=== PATIENT | female | born 1970 | race Caucasian/White ===

== ENCOUNTER → 2019-03-11 10:43 | Outpatient (CLI) | payer OTHER, SELFPAY ==
--- NOTE | 2019-03-11 10:50 | XR_ITS ---
PROCEDURE: XR LUMBAR SPINE 2-3V CLINICAL INDICATION: back pain Low back pain COMPARISON: No exams were available for comparison FINDINGS: Surgical clips are in the right mid and lower abdomen and in the pelvic region. There is normal alignment. No fracture or dislocation. No lytic or blastic change. There is partial lumbarization of S1. There is mild degenerative disc disease at L5-S1. there is generalized vascular calcification IMPRESSION: Mild degenerative disc disease L5-S1 Dictated by: Matt Núñez MD 03/11/2019 12:27 Electronically signed by Matt Núñez MD in [place] 03/11/2019 12:27
--- NOTE | 2019-03-11 10:50 | XR_ITS ---
PROCEDURE: XR SACRUM COCCYX MIN 2V CLINICAL INDICATION: coccyx pain COMPARISON: No exams were available for comparison FINDINGS: There are mild osteoarthritic changes of the right SI joint inferiorly. No fracture or dislocation. No fusion or sclerosis. Surgical clips are present in the pelvic region and there is a tubal ligation clip on the left IMPRESSION: Mild degenerative changes of the right SI joint otherwise negative Dictated by: Matt Núñez MD 03/11/2019 12:25 Electronically signed by Matt Núñez MD in [place] 03/11/2019 12:25
== END ==
PROVIDERS: PCP Emergency Medicine; Visit Provider Emergency Medicine
DX: M54.9 Dorsalgia, unspecified (principal); M53.3 Sacrococcygeal disorders, not elsewhere classified
CPT/HCPCS: 72100; 72220

== ENCOUNTER → 2019-03-30 12:01 | Outpatient (POV) | payer OTHER, SELFPAY | PROVIDERS: Visit Provider Specialist | DX: M79.642 Pain in left hand (principal); M79.641 Pain in right hand; R20.0 Anesthesia of skin; R20.2 Paresthesia of skin | CPT/HCPCS: 95886; 95910 ==

== ENCOUNTER → 2019-05-01 17:08 | Outpatient (CLI) | payer MEDICAID, SELFPAY ==
[2019-05-01 19:25] LABS: Amphetamine/Metha Screen,Urine Negative ng/mL (<1000); Barbiturates Screen,Urine Negative ng/mL (<200); Benzodiazepines Screen,Urine Negative ng/mL (<200); Cannabinoid Screen,Urine Negative ng/mL (<50); Cocaine Screen,Urine Negative ng/mL (<300); Methadone Screen,Urine Negative ng/mL (<300); Opiate Screen,Urine Positive ng/mL (<300); Phencyclidine Screen,Urine Negative ng/mL (<25)
== END ==
PROVIDERS: Visit Provider Emergency Medicine
DX: Z79.899 Other long term (current) drug therapy (principal)
CPT/HCPCS: 80305

== ENCOUNTER → 2019-05-25 10:17 | Outpatient (CLI) | payer MEDICAID, SELFPAY ==
--- NOTE | 2019-05-25 10:25 | MR_ITS ---
PROCEDURE: MR LUMBAR SPINE WO CON CLINICAL INDICATION: back pain Low back pain worse on the right with intermittent bilateral leg pain numbness and tingling COMPARISON: XR LUMBAR SPINE 2-3V from 03/11/2019 TECHNIQUE: Standard multiplanar multiecho sequences are performed without contrast. 3-D MIP and myelographic images are also rendered and reviewed FINDINGS: There are 6 non rib-bearing lumbar segments. The spinal cord ends at the L1 level. There is normal alignment L3-L4: Mild bulging disc. L4-5: Mild facet ligamentum hypertrophic change. L5-L6 colon mild degenerative disc disease with bulging disc and minimal central disc protrusion with facet ligamentum hypertrophy. L6-S1: Unremarkable. No disc herniation or canal stenosis. IMPRESSION: 1. No disc herniation or canal stenosis. 2. Minimal bulging disc at L3-L4. 3. Degenerative disc disease with minimal bulging disc and small central disc protrusion with facet ligamentum hypertrophy at L5-L6. 4. There are 6 lumbar segments. This should be taken into consideration if there is any surgical intervention contemplated. Dictated by: Matt Núñez MD 05/26/2019 11:42 Electronically signed by Matt Núñez MD in [place] 05/26/2019 11:42
== END ==
PROVIDERS: PCP Emergency Medicine; Visit Provider Emergency Medicine
DX: M54.5 Low back pain (principal)
CPT/HCPCS: 72148; 76376

== ENCOUNTER 2020-09-29 21:42 | Emergency (ER) | payer MEDICAID, SELFPAY ==
[2020-09-29 21:44] VITALS: BP 169/78; PULSE 60; RESP 16; TEMP 36.8; O2SAT 100; BMI 25.8
--- NOTE | 2020-09-29 22:01 | XR_ITS ---
PROCEDURE INFORMATION: Exam: XR Chest Exam date and time: 09/29/2020 10:01 PM Age: 49 years old Clinical indication: Patient HX: Cough, feeling ill for 3 days, smoker. TECHNIQUE: Imaging protocol: XR of the chest. Views: 2 views. COMPARISON: No relevant prior studies available. FINDINGS: Lungs: Unremarkable. No consolidation. Pleural spaces: Unremarkable. No pleural effusion. No pneumothorax. Heart/Mediastinum: Unremarkable. No cardiomegaly. Bones/joints: Unremarkable. IMPRESSION: No acute findings.
--- NOTE | 2020-09-29 22:01 | XR_ITS ---
PROCEDURE INFORMATION: Exam: XR Left Knee Exam date and time: 09/29/2020 10:01 PM Age: 49 years old Clinical indication: Patient HX: Left knee pain for a month. TECHNIQUE: Imaging protocol: XR Left knee. Views: 3 views. COMPARISON: No relevant prior studies available. FINDINGS: Bones/joints: Normal. Soft tissues: Normal. IMPRESSION: No acute findings.
[2020-09-29 22:11] LABS: Coronavirus 19, PCR Not Detected (NotDetected); Influenza A, PCR Not Detected (NotDetected); Influenza B, PCR Not Detected (NotDetected)
[2020-09-29 22:14] LABS: Basophils # 0.1 K/mm3 (0-0.2); Basophils % 0.7 % (0.1-2.0); Eosinophils # 0.1 K/mm3 (0.0-0.4); Eosinophils % 0.7 % (0.1-12.0); Hematocrit 42.8 % (37.0-47.0); Hemoglobin 13.9 g/dL (12.2-16.2); Lymphocytes # 2.5 K/mm3 (0.7-4.5); Mean Corpuscular HGB Conc 32.4 g/dL (31.8-35.4); Mean Corpuscular Hemoglobin 28.5 pg (27.0-31.2); Mean Corpuscular Volume 87.7 fl (81-99); Mean Platelet Volume 7.2 fl (7.4-10.4); Monocytes # 0.4 K/mm3 (0.1-1.0); Monocytes % 4.3 % (1.7-9.3); Neutrophils # 6.6 K/mm3 (1.8-7.8); Neutrophils % 68.3 % (37.0-80.0); Platelet Count 352 K/mm3 (142-424); Red Blood Count 4.88 M/mm3 (4.20-5.40); Red Cell Distribution Width 13.7 % (11.5-17.5); White Blood Count 9.7 K/mm3 (4.8-10.8)
[2020-09-29 22:15] LABS: Microscopic, Urine URINE MICROSCOPIC (MICROSCOPIC)
[2020-09-29 22:18] LABS: Appearance,Urine CLEAR (Clear); Bilirubin,Urine Negative (Negative); Blood, Urine 1+ (Negative); Color,Urine YELLOW (Yellow); Glucose,Urine (UA) Negative (Negative); Ketones,Urine Negative (Negative); Leukocyte Esterase,Urine Negative (Negative); Nitrate,Urine Negative (Negative); Protein,Urine 2+ (Negative); Specific Gravity, Urine 1.015 (1.005-1.030); Urobilinogen,Urine 0.2 EU/dl (0.2)
--- NOTE | 2020-09-29 22:20 | CT_ITS ---
PROCEDURE INFORMATION: Exam: CT Abdomen And Pelvis Without Contrast Exam date and time: 09/29/2020 10:20 PM Age: 49 years old Clinical indication: Abdominal pain; Prior surgery; Surgery date: 6+ months; Surgery type: Right kidney removal; Patient HX: Lower abd pain. N/v/d x3 days. PT had right kidney cancer, right kidney has been removed. Unable to have contrast TECHNIQUE: Imaging protocol: Computed tomography of the abdomen and pelvis without contrast. Radiation optimization: All CT scans at this facility use at least one of these dose optimization techniques: automated exposure control; mA and/or kV adjustment per patient size (includes targeted exams where dose is matched to clinical indication); or iterative reconstruction. COMPARISON: DX XR SACRUM COCCYX MIN 2V 03/11/2019 10:55 AM FINDINGS: Liver: Normal. No mass. Gallbladder and bile ducts: Normal. No calcified stones. No ductal dilation. Pancreas: Normal. No ductal dilation. Spleen: Normal. No splenomegaly. Adrenal glands: Normal. No mass. Kidneys and ureters: Right kidney is absent. Left kidney normal. Stomach and bowel: Unremarkable. No obstruction. No mucosal thickening. Appendix: Appendix not seen but no secondary signs of appendicitis. Intraperitoneal space: Unremarkable. No free air. No significant fluid collection. Vasculature: Unremarkable. No abdominal aortic aneurysm. Lymph nodes: Unremarkable. No enlarged lymph nodes. Urinary bladder: Unremarkable as visualized. Reproductive: Hysterectomy. Bones/joints: Unremarkable. No acute fracture. Soft tissues: Unremarkable. IMPRESSION: No acute findings in the abdomen pelvis
[2020-09-29 22:21] LABS: Alanine Aminotransferase 14 U/L (12-78); Albumin Level 4.2 g/dl (3.5-5.0); Albumin/Globulin Ratio 1.4 (1.1-1.8); Alkaline Phosphatase 118 U/L (38-126); Aspartate Amino Transferase 20 U/L (14-36); Bilirubin,Total 0.4 mg/dl (0.2-1.3); Blood Urea Nitrogen 9 mg/dl (7-17); Calcium 9.1 mg/dl (8.4-10.2); Carbon Dioxide 30 mmol/L (22.0-30.0); Creatinine Clearance Estimated 98 mL/min (50-200); Estimated Glomerular Filt Rate 76 ml/min (>60); GFR (African American) 92 ML/MIN (>60); Globulin 2.9 g/dL (1.3-3.2); Glucose 97 mg/dl (74-100); Lipase 42 U/L (23-300); Sodium 138 mmol/L (136-145); Total Protein,Serum 7.1 g/dl (6.3-8.2)
--- NOTE | 2020-09-29 22:21 | PC.NURSE ---
Pt refused contrast ct d/t only having one kidney
[2020-09-29 22:27] LABS: C-Reactive Protein 1.5 mg/L (0-4)
[2020-09-29 22:46] LABS: Procalcitonin < 0.030 ng/mL (0.0-2.0)
[2020-09-29 22:52] LABS: Chloride 103 mmol/L (98-107); Erythrocyte Sedimentation Rate 21 mm/hr (0-30)
--- NOTE | 2020-09-29 23:00 | HMH.EDNVD ---
ED Disposition Clinical Impression: Bronchitis Knee pain, left Qualifiers: Chronicity: acute Qualified Code(s): M25.562 - Pain in left knee Disposition: Home, Self-Care Condition on Discharge: Good Instructions: DI for Acute Bronchitis Additional Instructions: see pcp for follow up Prescriptions: levoFLOXacin [Levaquin 500mg tab] 500 mg PO DAILY #7 tab Transmission Status: Pending to [facility] predniSONE [Prednisone 20mg Tab] 20 mg PO BID #10 tab Transmission Status: Pending to [facility] Benzonatate [Tessalon Perle 100mg Cap] 100 mg PO TID #30 cap Transmission [facility]: [facility] Referrals: Philippe Myers MD [Primary Care Provider] - - Critical Care Critical Care Time: No Attestation: On 09/29/20, the high probability of a clinically significant, sudden or life threatening deterioration of the following system(s) required my full and direct attention, intervention and personal management. The time I documented below is in addition to time spent performing reported procedures but includes the following listed in this critical care notation. Medical Decision Making - Medical Records Medical records reviewed: Yes: I reviewed the patient's medical records. - Rajiv Inquiry Pt receiving controlled substance: No Vital Signs: 09/29/20 21:44 Temperature 98.2 F Temperature Source Oral Pulse Rate [Left Radial] 60 Respiratory Rate 16 Blood Pressure [Right Arm] 169/78 H Blood Pressure Mean [Right Arm] 108 Blood Pressure Source [Right Arm] Automatic Cuff Blood Pressure Position [Right Arm] Supine 02 Sat by Pulse Oximetry 100 Oxygen Delivery Method Room Air - Lab Data Lab results reviewed: Yes: I reviewed the patient's lab results. Lab Results 09/29/20 22:04: WBC 9.7, RBC 4.88, Hgb 13.9, Hct 42.8, MCV 87.7, MCH 28.5, MCHC 32.4, RDW 13.7, Plt Count 352, MPV 7.2 L, Neut % (Auto) 68.3, Lymph % (Auto) 26.0, [place] % (Auto) 4.3, Eos % (Auto) 0.7, Baso % (Auto) 0.7, Neut # (Auto) 6.6, Lymph # (Auto) 2.5, [place] # (Auto) 0.4, Eos # (Auto) 0.1, Baso # (Auto) 0.1, ESR 21 09/29/20 22:04: Sodium 138, Potassium 3.0 L, Chloride 103, Carbon Dioxide 30, Anion Gap 8.0, BUN 9, Creatinine 0.80, Estimated Creat Clear 98, Estimated GFR 76, Est GFR ( Amer) 92, Glucose 97, Calcium 9.1, Total Bilirubin 0.4, AST 20, ALT 14, Alkaline Phosphatase 118, C-Reactive Protein 1.5, Total Protein 7.1, Albumin 4.2, Globulin 2.9, Albumin/Globulin Ratio 1.4, Procalcitonin < 0.030 09/29/20 22:04: Lipase 42 09/29/20 22:07: SARS-CoV-2 (PCR) Not detected, Influenza A Untype (PCR) Not detected, Influenza Type B (PCR) Not detected 09/29/20 22:11: Urine Color Yellow, Urine Appearance Clear, Urine pH 6.0, Ur Specific [place] 1.015, Urine Protein 2+, Urine Glucose (UA) Negative, Urine Ketones Negative, Urine Blood 1+, Urine Nitrate Negative, Urine Bilirubin Negative, Urine Urobilinogen 0.2, Ur Leukocyte Esterase Negative, Urine RBC 3-5, Urine WBC None, Ur Squamous Epith Cells None, Urine Bacteria None Result diagrams: 09/29/20 22:04 09/29/20 22:04 Orders (Tests/Meds): ED MEDICATIONS Generic Name Dose Route Start Last Admin Trade Name Freq PRN Reason Stop Dose Admin Sodium Chloride 1,000 mls @ 999 mls/hr 09/29/20 22:15 09/29/20 22:15 Sod Chlor 0.9% 1000ml Bag IV 09/29/20 23:15 999 mls/hr .Q1H1M BARRY Administration Sodium Chloride 1,000 mls @ 999 mls/hr 09/29/20 23:15 09/29/20 23:07 Sod Chlor 0.9% 1000ml Bag IV 09/30/20 00:15 999 mls/hr .Q1H1M BARRY Administration Ceftriaxone Sodium 1 gm/ 50 mls @ 100 mls/hr 09/29/20 23:45 09/29/20 23:37 Sodium Chloride IV 10/13/20 23:44 100 mls/hr Q24H BARRY Administration Protocol Sodium Chloride 8 ml 09/29/20 22:09 Sodium Chloride 0.9% 10ml Vial IV 10/29/20 22:08 NEEDED PRN dilute pepcid Discontinued Medications Generic Name Dose Route Start Last Admin Trade Name Freq PRN Reason Stop Dose Admin
[2020-09-29 23:43] VITALS: BP 98/67; PULSE 68; O2SAT 100
[2020-09-30] VITALS: BP 121/68; PULSE 61; O2SAT 99
[2020-09-30 00:06] VITALS: BP 121/68; PULSE 62; RESP 18; TEMP 36.7; O2SAT 99
== END 2020-09-30 00:13 | disposition home or self-care (01) ==
PROVIDERS: Emergency Provider Emergency Medicine; PCP Emergency Medicine
DX: J20.9 Acute bronchitis, unspecified (principal); M25.562 Pain in left knee; F17.210 Nicotine dependence, cigarettes, uncomplicated
CPT/HCPCS: 71046; 73562; 74176; 80053; 81001; 83690; 84145; 85025; 85651; 86140; 96365; 96366; 96375; 99283; J2405; U0003

== ENCOUNTER → 2021-11-15 08:10 | Outpatient (CLI) | payer MEDICAID, SELFPAY ==
--- NOTE | 2021-11-15 08:12 | XR_ITS ---
FINAL REPORT CLINICAL HISTORY: L Knee pain COMPARISON: 09/29/2020 FINDINGS: LEFT KNEE 3 views of the left knee were obtained. There is no acute fracture or dislocation. There is mild lateral subluxation of the patella. There is a moderate joint effusion. IMPRESSION: Moderate joint effusion with mild lateral subluxation of the patella. Reviewed, Interpreted and Dictated by Bill Lee III, MD Transcribed by Chyna Peraza Authenticated and . [facility]
== END ==
PROVIDERS: PCP Emergency Medicine; Visit Provider Nurse Practitioner Family
DX: M25.562 Pain in left knee (principal)
CPT/HCPCS: 73564

== ENCOUNTER 2022-03-26 08:41 | Inpatient (IN) | payer MEDICAID, SELFPAY ==
[2022-03-26] VITALS (19 sets, daily range): BP systolic 108–180; BP diastolic 50–97; PULSE 50–76; RESP 12–18; TEMP 36.7–36.8; O2SAT 96–100; BMI 26.6; BMI 29.3
--- NOTE | 2022-03-26 08:41 | ECG_ITS ---
APPROVED REPORT Exam: Resting ECG HR:59 bpm ECG Measurements Heart Rate 59 AXES MN 204 P 38 QRSd 99 QRS 38 QT 440 T 66 QTc 440 Conclusion SINUS BRADYCARDIA INCOMPLETE RIGHT BUNDLE BRANCH BLOCK [90+ ms QRS DURATION, TERMINAL R IN V1/V2, 40+ ms S IN I/aVL/V4/V5/V6] BORDERLINE ECG UNCONFIRMED REPORT Electronically signed by : Josh Castillo MD 03/26/2022 19:55:45
--- NOTE | 2022-03-26 08:49 | XR_ITS ---
FINAL REPORT TECHNIQUE: Single view chest CLINICAL HISTORY: Midsternal chest pain COMPARISON: 09/30/2020 FINDINGS: A single view of the chest was obtained. The heart and mediastinum are within normal limits. The lungs are clear. There is no pneumothorax. Osseous structures are unremarkable. IMPRESSION: No acute cardiopulmonary process. Reviewed, Interpreted and Dictated by Bill Lee III, MD Transcribed by Jaimie Leon Authenticated and [facility]
[2022-03-26 09:06] LABS: Chloride 101 mmol/L (98-107); Potassium 4.1 mmoL/L (3.5-5.1); Sodium 139 mmol/L (136-145)
[2022-03-26 09:08] LABS: Basophils # 0.1 K/mm3 (0-0.2); Basophils % 1.6 % (0.1-2.0); Eosinophils # 0.1 K/mm3 (0.0-0.4); Eosinophils % 2.1 % (0.1-12.0); Hematocrit 44.6 % (37.0-47.0); Hemoglobin 14.1 g/dL (12.2-16.2); Lymphocytes # 1.7 K/mm3 (0.7-4.5); Lymphocytes % 25.6 % (10-50); Mean Corpuscular HGB Conc 31.7 g/dL (31.8-35.4); Mean Corpuscular Hemoglobin 29.3 pg (27.0-31.2); Mean Corpuscular Volume 92.2 fl (81-99); Mean Platelet Volume 7.9 fl (7.4-10.4); Monocytes # 0.3 K/mm3 (0.1-1.0); Monocytes % 4.7 % (1.7-9.3); Neutrophils # 4.3 K/mm3 (1.8-7.8); Neutrophils % 65.9 % (37.0-80.0); Platelet Count 292 K/mm3 (142-424); Red Blood Count 4.83 M/mm3 (4.20-5.40); Red Cell Distribution Width 13.2 % (11.5-17.5); White Blood Count 6.5 K/mm3 (4.8-10.8)
[2022-03-26 09:09] LABS: Anion Gap 10.1 mEq/L (5-15); Blood Urea Nitrogen 12 mg/dl (7-17); Carbon Dioxide 32 mmol/L (22.0-30.0); Creatinine Clearance Estimated 88 mL/min (50-200); Estimated Glomerular Filt Rate 65 ml/min (>60); GFR (African American) 79 ML/MIN (>60)
[2022-03-26 09:10] LABS: Calcium 9.4 mg/dl (8.4-10.2); Glucose 136 mg/dl (74-100)
--- NOTE | 2022-03-26 09:16 | HMH.EDGENADL ---
Discharge Plan Disposition Patient Disposition: Admitted As Inpatient Chief Complaint: Chest Pain Prescriptions Prescriptions: No Action polyethylene glycol 3350 [Miralax] 17 gram/dose powder 17 g PO DAILY Qty: 238 2RF budesonide-formoterol [Symbicort] 160-4.5 mcg/actuation HFA aerosol inhaler See Rx Instructions .ROUTE .COMPLEX Qty: 10.2 2RF Dose Instruction: 2 PUFFS TWICE DAILY Rx Instructions: 2 PUFFS TWICE DAILY ipratropium-albuterol 0.5 mg-3 mg(2.5 mg base)/3 mL solution for nebulization See Rx Instructions .ROUTE .COMPLEX Qty: 360 0RF Dose Instruction: INHALE CONTENTS OF 1 VIAL IN NEBULIZER MACHINE FOUR TIMES DAILY NEEDED FOR SHORTNESS OF BREATH OR WHEEZING Rx Instructions: INHALE CONTENTS OF 1 VIAL IN NEBULIZER MACHINE FOUR TIMES DAILY NEEDED FOR SHORTNESS OF BREATH OR WHEEZING albuterol sulfate [Ventolin HFA] 90 mcg/actuation HFA aerosol inhaler See Rx Instructions .ROUTE .COMPLEX Qty: 18 0RF Dose Instruction: INHALE 2 PUFFS BY MOUTH EVERY 4 TO 6 HOURS NEEDED FOR SHORTNESS OF BREATH OR WHEEZING Rx Instructions: INHALE 2 PUFFS BY MOUTH EVERY 4 TO 6 HOURS NEEDED FOR SHORTNESS OF BREATH OR WHEEZING bisacodyl 5 mg tablet,delayed release (DR/EC) 5 mg PO HS 2 Days Qty: 2 1RF magnesium citrate Solution 300 ml PO DAILY PRN (Reason: constipation) Qty: 296 1RF betamethasone dipropionate 0.05 % ointment 1 applic TOPICAL BID PRN (Reason: skin irritation) Qty: 45 0RF Linzess 145 mcg capsule 145 mcg PO DAILY Qty: 30 2RF methadone 10 mg Tablet 90 mg PO DAILY Referrals Follow up/Referrals: Provider,Referral, MD [Referring] - See instructions Clinical Impressions Clinical Impression: Non-ST elevation IA (NSTEMI), Chest pain Discharge ED Provider: Jose Farias General Adult HPI General Chief complaint: Chest Pain Stated complaint: CP Time Seen by Provider: 03/26/22 09:00 Mode of Arrival: Ambulatory Source of Information: Patient Limitations: No Limitations Description of Symptoms (Recalled from ER Triage Doc. by RN): Pt reports chest pain that began yesterday, states pain is intermittent in nature. Pt describes pain as a tightness in nature. Pt reports does have radiation of pain to LUE when has chest pain, reports pain in LUE is aching in nature. History of Present Illness HPI narrative: Patient is a 51-year-old female with no pertinent past medical history who presents with concern for chest pain. She states that her symptoms started yesterday. She says that she has never had this happen in the past. She says that it is intermittent but persistent since yesterday. She says that it is worse if she gets up and moves around but it has happened at rest. She says when it happens at rest that it is not as bad as when she is up and moving around. She describes it as a tightness. She denies any nausea. She has noted some diaphoresis during these episodes. She denies any fever or chills. She says that when she gets the chest pain she does have some achiness that goes into her left upper arm. Denies any shortness of breath. She does endorse some orthopnea. Denies any crease pain with deep inspiration. Related Data Home Medications Medication Instructions Recorded Confirmed methadone 10 mg tablet 90 mg PO DAILY previous addiction 03/26/22 03/26/22 Previous Rx's Medication Instructions Recorded albuterol sulfate 90 mcg/actuation See Rx Instructions .Route 01/31/21 aerosol inhaler (Ventolin HFA) .COMPLEX #18 grams betamethasone dipropionate 0.05 % 1 applic topical BID PRN skin 01/31/21 topical ointment irritation #45 grams bisacodyl 5 mg tablet,delayed 5 mg PO HS 2 days #2 tabs 01/31/21 release linaclotide 145 mcg capsule 145 mcg PO DAILY #30 caps 01/31/21 (Linzess) magnesium citrate 300 ml PO DAILY PRN constipation 01/31/21 #296 mL budesonide-formoterol HFA 160 See Rx Instructions .Route 03/01/22
[2022-03-26 09:22] LABS: Troponin I 0.09 ng/ml (0.00-0.034)
--- NOTE | 2022-03-26 10:22 | PC.NURSE ---
Rounded on patient, asking for a blanket. Family at BS. No other needs at this time. Covid swab sent to lab
[2022-03-26 10:25] LABS: Coronavirus 19, PCR Not Detected (NotDetected); Influenza A, PCR Not Detected (NotDetected); Influenza B, PCR Not Detected (NotDetected)
[2022-03-26 12:39] LABS: Troponin I 0.11 ng/ml (0.00-0.034)
--- NOTE | 2022-03-26 12:39 | PC.NURSE ---
per lab states are resulting pt 2nd troponin at this time, notified ER
--- NOTE | 2022-03-26 12:47 | PC.NURSE ---
notified cardiology office of consult on pt
--- NOTE | 2022-03-26 12:53 | PC.NURSE ---
JOÃO Mccormick at BS
--- NOTE | 2022-03-26 12:59 | PC.NURSE ---
checked on pt at this time, notified pt of ER MD requesting cardiology come over to speak with pt. Pt verbalized understanding. States no needs at this time. Significant other at BS
--- NOTE | 2022-03-26 13:26 | PC.NURSE ---
colleen Holbrook at BS
--- NOTE | 2022-03-26 13:40 | PC.NURSE ---
notified care management of admission, spoke with franky
--- NOTE | 2022-03-26 13:43 | EXP.CARD.CON ---
History of Present Illness History of Present Illness Consult date: 03/26/22 Requesting physician: Jose Farias Chief complaint: chest pain Additional Medical History:: Past medical hx 1 ppd 20+ years Anxiety COPD History of present illness: 51 year old white female with above past medical hx presented to ER with complaint of midsternal chest pain radiating to left arm since yesterday. Patient reports pain has been intermittent, is present at rest and exacerbated with activity, associated with mild nausea. Denies soa. Upon presentation to ER, EKG shows sinus bradycardia rate 59 with an incomplete RBBB. BP is well controlled. Initial trop was 0.9 and repeat is 0.11. Patient reports has had similar episodes to this over the past year but never lasting this long. [facility] Disclaimer: The information contained in this section may have been updated after the patient was seen, as this information can be updated by other users. Medical History Anxiety Cancer COPD (chronic obstructive pulmonary disease) Depression Psoriasis Surgical History History of kidney removal History of kidney surgery Hx of hysterectomy, total Family History Other Cancer Hypertension Social History Smoking Status: Never smoker alcohol intake: never substance use type: denies use current occupational status: unemployed Travel in the last 8 weeks: None Review of Systems Review of Systems Review of systems:: pertinent systems reviewed and negative unless documented below Constitutional Constitutional: Reports system reviewed and no additional complaints, except as documented *Cardiovascular Cardiovascular: Reports chest pain and Denies dyspnea on exertion *Respiratory Respiratory: Denies dyspnea on exertion *Gastrointestinal Gastrointestinal: Reports system reviewed and no additional complaints, except as documented *Neurologic Neurologic: Reports system reviewed and no additional complaints, except as documented and Denies confusion Psychiatric Psychiatric: Reports system reviewed and no additional complaints, except as documented and Denies confusion Exam Data for Last 24 hours Vital signs and Labs for Last 24 Hours: Temp Pulse Resp BP Pulse Ox 98.0 F 74 16 120/69 100 03/26/22 08:44 03/26/22 13:01 03/26/22 13:01 03/26/22 13:01 03/26/22 13:01 Laboratory Results - last 24 hr 03/26/22 08:45: WBC 6.5, RBC 4.83, Hgb 14.1, Hct 44.6, MCV 92.2, MCH 29.3, MCHC 31.7 L, RDW 13.2, Plt Count 292, MPV 7.9, Neut % (Auto) 65.9, Lymph % (Auto) 25.6, [place] % (Auto) 4.7, Eos % (Auto) 2.1, Baso % (Auto) 1.6, Neut # (Auto) 4.3, Lymph # (Auto) 1.7, [place] # (Auto) 0.3, Eos # (Auto) 0.1, Baso # (Auto) 0.1 03/26/22 08:45: Sodium 139, Potassium 4.1, Chloride 101, Carbon Dioxide 32 H, Anion Gap 10.1, BUN 12, Creatinine 0.90, Estimated Creat Clear 88, Estimated GFR 65, Est GFR ( Amer) 79, Glucose 136 H, Calcium 9.4, Troponin I 0.09 H 03/26/22 10:21: SARS-CoV-2 (PCR) Not detected, Influenza A Untype (PCR) Not detected, Influenza Type B (PCR) Not detected 03/26/22 12:06: Troponin I 0.11 H I & O for Last 24 hours: Intake & Output 03/23/22 03/24/22 03/25/22 03/26/22 23:59 23:59 23:59 23:59 Weight 170 lb Constitutional Constitutional: no acute distress *Routine Respiratory Exam Respiratory: Present CTA bilaterally and symmetric chest movement *Routine Cardiovascular Exam Cardiovascular: Present RRR, Normal S1 and Normal S2 *Routine Abdominal Exam Abdominal: Present soft and normoactive bowel sounds; Absent tenderness *Routine Extremities Exam Extremities: Present full ROM and normal capillary refill; Absent edema *Routine Skin Exam Skin: Present intact, dry and warm Detailed Neck Exam: Thyroids Thyroid:
--- NOTE | 2022-03-26 13:59 | PC.NURSE ---
verified with colleen fox r/t metoprolol order and pt HR is 56, states okay to give.
--- NOTE | 2022-03-26 14:48 | PC.NURSE ---
dr. luo at BS (hospitalist)
--- NOTE | 2022-03-26 14:50 | PC.NURSE ---
per maintenance worker house trailer pt boarding in the ER pending discharges on second floor.
--- NOTE | 2022-03-26 15:08 | PC.NURSE ---
updated pt she will be boarding in ER until a bed is available on second floor pending discharges. ordered pt lunch tray (okayed per cardiology, states pt will go to quality assurance qa lab analyst tomorrow)
[2022-03-26 15:42] LABS: Troponin I 0.15 ng/ml (0.00-0.034)
--- NOTE | 2022-03-26 16:01 | PC.NURSE ---
REPORT GIVEN TO Aron BETANCOURT RN
--- NOTE | 2022-03-26 16:13 | EXP.HP ---
History of Present Illness *Admission Date: 03/26/22 *Reason for visit:: Chief complaint: Chest pain *History of present illness: Snow Lopez is a 51-year-old female that presents to [facility] emergency department with concerns of chest pain over the last 48 hours. Her past medical history is significant for psoriasis, COPD with ongoing tobacco dependence and opioid dependency. She reports yesterday afternoon she started experiencing chest pain characterizes pressure and radiating to her left upper extremity. It lasted approximately 5 minutes and was intermittent. Throughout today she identified that it was exacerbated with exertion. She identified associated diaphoresis but no nausea or vomiting. She experienced no acute dyspnea, confusion or palpitations. She did not sleep well. This morning her chest pressure crescendoed so she presented to the emergency department for evaluation. In the ED her initial troponin was elevated and the second troponin crescendo. Her ECG identified incomplete right bundle branch block with no acute ST-T changes. Cardiology was consulted out of the ED. [facility] Disclaimer: The information contained in this section may have been updated after the patient was seen, as this information can be updated by other users. Medical History (Updated 03/26/22 @ 16:20 by Migel Gold MD) Anxiety Cancer COPD (chronic obstructive pulmonary disease) Depression Psoriasis Surgical History History of kidney removal History of kidney surgery Hx of hysterectomy, total Family History Other Cancer Hypertension Social History Smoking Status: Never smoker alcohol intake: never substance use type: denies use current occupational status: unemployed Travel in the last 8 weeks: None Review of Systems Review of Systems Review of systems:: pertinent systems reviewed and negative unless documented below *Cardiovascular Cardiovascular: Reports chest pain, Reports chest pain at rest, Reports chest pain with activity and Reports diaphoresis *Neurologic Neurologic: Reports system reviewed and no additional complaints, except as documented and Denies confusion Psychiatric Psychiatric: Denies confusion Meds Home Medications and Allergies Home Medications Medication Instructions Recorded Confirmed Type budesonide-formoterol HFA 160 2 puff inhalation BID shortness of 03/26/22 03/26/22 History mcg-4.5 mcg/actuation aerosol breath inhaler (Symbicort) clobetasol 0.05 % topical ointment 1 applic topical BID skin infection 03/26/22 03/26/22 History ipratropium 0.5 mg-albuterol 3 mg 3 ml inhalation QID PRN Shortness 03/26/22 03/26/22 History (2.5 mg base)/3 mL nebulization Of Breath soln methadone 10 mg tablet 90 mg PO DAILY previous addiction 03/26/22 03/26/22 History pimecrolimus 1 % topical cream 1 applic topical BID eczema 03/26/22 03/26/22 History (Elidel) polyethylene glycol 3350 17 17 g PO DAILY constipation 03/26/22 03/26/22 History gram/dose oral powder (Miralax) New Prescriptions to Start Prescriptions: Allergies Allergy/AdvReac Type Severity Reaction Status Date / Time escitalopram [From Lexapro] Allergy Mild Vomiting Verified 12/19/21 11:53 sertraline [From Zoloft] Allergy Mild Vomiting Verified 12/19/21 11:53 Anesthetic, Local Allergy Unknown Uncoded 12/19/21 11:53 Codeine Allergy Unknown Uncoded 12/19/21 11:53 From Procaine HCl Allergy Unknown Uncoded 12/19/21 11:53 Levofloxacin Allergy Unknown Uncoded 12/19/21 11:53 Quinolone Allergy Unknown Uncoded 12/19/21 11:53 Exam Data for Last 24 hours Vital signs and Labs for Last 24 Hours: Temp Pulse Resp BP Pulse Ox 98.0 F 65 16 144/74 H 96 03/26/22 08:44 03/26/22 14:53 03/26/22 14:53 03/26/22 14:53 03/26/22
--- NOTE | 2022-03-26 16:44 | PC.NURSE ---
pt taken to 2nd floor via wc with tech
--- NOTE | 2022-03-26 16:45 | PC.NURSE ---
arrived to room by wheelchair from ED
[2022-03-27] VITALS (28 sets, daily range): BP systolic 115–183; BP diastolic 50–97; PULSE 40–88; RESP 17–21; TEMP 36.4–37.2; O2SAT 96–100; BMI 30.2
--- NOTE | 2022-03-27 05:27 | PC.NURSE ---
NO ACUTE CHANGES SINCE PREVIOUS ASSESSMENT. LUNG SOUNDS ARE CLEAR. PT HAS SLEPT WELL. NO C/O SOB OR CHEST PAIN THIS SHIFT. AMBULATING INDEPENDENTLY TO THE BATHROOM. CALL HARTMAN WITHIN REACH.
--- NOTE | 2022-03-27 07:00 | HMH.PHAINT1 ---
Pharmacy Intervention Comments: Medication reconciliation completed via chart review, external fill history, and verification with [facility]. -Yazmin Purdy, IvaD Candidate 2022
[2022-03-27 07:34] LABS: Basophils # 0.1 K/mm3 (0-0.2); Basophils % 1.9 % (0.1-2.0); Eosinophils # 0.2 K/mm3 (0.0-0.4); Eosinophils % 2.9 % (0.1-12.0); Hematocrit 40.9 % (37.0-47.0); Hemoglobin 13.1 g/dL (12.2-16.2); Lymphocytes # 1.7 K/mm3 (0.7-4.5); Lymphocytes % 27.1 % (10-50); Mean Corpuscular HGB Conc 32.1 g/dL (31.8-35.4); Mean Corpuscular Volume 90.5 fl (81-99); Mean Platelet Volume 7.7 fl (7.4-10.4); Monocytes # 0.3 K/mm3 (0.1-1.0); Monocytes % 4.6 % (1.7-9.3); Neutrophils # 3.9 K/mm3 (1.8-7.8); Neutrophils % 63.4 % (37.0-80.0); Platelet Count 250 K/mm3 (142-424); Red Blood Count 4.52 M/mm3 (4.20-5.40); Red Cell Distribution Width 13.4 % (11.5-17.5); White Blood Count 6.2 K/mm3 (4.8-10.8)
[2022-03-27 07:37] LABS: Chloride 106 mmol/L (98-107); Potassium 4.1 mmoL/L (3.5-5.1); Sodium 139 mmol/L (136-145)
[2022-03-27 07:40] LABS: Anion Gap 9.1 mEq/L (5-15); Blood Urea Nitrogen 12 mg/dl (7-17); Carbon Dioxide 28 mmol/L (22.0-30.0); Cholesterol 232 mg/dl (140-200); Creatinine Clearance Estimated 112 mL/min (50-200); Estimated Glomerular Filt Rate 75 ml/min (>60); GFR (African American) 91 ML/MIN (>60); Triglycerides 172 mg/dl (30-150); VLDL Cholesterol 34 mg/dL (0-40)
[2022-03-27 07:41] LABS: Calcium 8.8 mg/dl (8.4-10.2); Chol/HDL Ratio 5.8 (1-3.5); Glucose 96 mg/dl (74-100); HDL Cholesterol 40 mg/dl (40-60); INR 0.95 (0.9-1.1); Magnesium 1.7 mg/dl (1.6-2.3); Prothrombin Time 10.3 seconds (10.1-12.5)
[2022-03-27 07:51] LABS: Direct LDL Cholesterol 140.29 mg/dL (100-129)
--- NOTE | 2022-03-27 08:58 | EXP.CARD.PN ---
Subjective Subjective Date: 03/27/22 Time: 08:00 Principal diagnosis: NSTEMI Interval history: Patient reports had an okay night experiencing intermittent chest pain. Currently denies chest pain. Systolic blood pressure noted to be in the 140s and 150s throughout the evening. We will start patient on losartan 50 mg daily. A.m. labs reviewed. Patient awaiting left heart cath. Exam Data for Last 24 hours Vital signs and Labs for Last 24 Hours: Temp Pulse Resp BP Pulse Ox 97.5 F L 65 19 151/50 H 100 03/27/22 08:00 03/27/22 08:00 03/27/22 08:00 03/27/22 08:00 03/27/22 08:00 Laboratory Results - last 24 hr 03/26/22 08:45: WBC 6.5, RBC 4.83, Hgb 14.1, Hct 44.6, MCV 92.2, MCH 29.3, MCHC 31.7 L, RDW 13.2, Plt Count 292, MPV 7.9, Neut % (Auto) 65.9, Lymph % (Auto) 25.6, [place] % (Auto) 4.7, Eos % (Auto) 2.1, Baso % (Auto) 1.6, Neut # (Auto) 4.3, Lymph # (Auto) 1.7, [place] # (Auto) 0.3, Eos # (Auto) 0.1, Baso # (Auto) 0.1 03/26/22 08:45: Sodium 139, Potassium 4.1, Chloride 101, Carbon Dioxide 32 H, Anion Gap 10.1, BUN 12, Creatinine 0.90, Estimated Creat Clear 88, Estimated GFR 65, Est GFR ( Amer) 79, Glucose 136 H, Calcium 9.4, Troponin I 0.09 H 03/26/22 10:21: SARS-CoV-2 (PCR) Not detected, Influenza A Untype (PCR) Not detected, Influenza Type B (PCR) Not detected 03/26/22 12:06: Troponin I 0.11 H 03/26/22 14:58: Troponin I 0.15 H 03/27/22 07:22: WBC 6.2, RBC 4.52, Hgb 13.1, Hct 40.9, MCV 90.5, MCH 29.0, MCHC 32.1, RDW 13.4, Plt Count 250, MPV 7.7, Neut % (Auto) 63.4, Lymph % (Auto) 27.1, [place] % (Auto) 4.6, Eos % (Auto) 2.9, Baso % (Auto) 1.9, Neut # (Auto) 3.9, Lymph # (Auto) 1.7, [place] # (Auto) 0.3, Eos # (Auto) 0.2, Baso # (Auto) 0.1 03/27/22 07:22: PT 10.3, INR 0.95 03/27/22 07:22: Sodium 139, Potassium 4.1, Chloride 106, Carbon Dioxide 28, Anion Gap 9.1, BUN 12, Creatinine 0.80, Estimated Creat Clear 112, Estimated GFR 75, Est GFR ( Amer) 91, Glucose 96 D, Calcium 8.8, Magnesium 1.7, Triglycerides 172 H, Cholesterol 232 H, LDL Cholesterol Direct 140.29 H, VLDL Cholesterol 34, HDL Cholesterol 40, Cholesterol/HDL Ratio 5.8 H I & O for Last 24 hours: Intake & Output 03/24/22 03/25/22 03/26/22 03/27/22 23:59 23:59 23:59 23:59 Intake Total 240 / 240 615 / 615 Output Total 0 / 0 800 / 800 Balance 240 / 240 -185 / -185 Weight 187 lb 4 oz 192 lb 9.6 oz Constitutional Constitutional: no acute distress *Routine Respiratory Exam Respiratory: Present CTA bilaterally and symmetric chest movement *Routine Cardiovascular Exam Cardiovascular: Present RRR, Normal S1 and Normal S2 *Routine Abdominal Exam Abdominal: Present soft and normoactive bowel sounds; Absent tenderness *Routine Extremities Exam Extremities: Present full ROM and normal capillary refill; Absent edema *Routine Skin Exam Skin: Present intact, dry and warm Detailed Neck Exam: Thyroids Thyroid: Absent bruit Progress Note: A&P Assessment and plan (1) Non-ST elevation PR (NSTEMI): Status: Acute (2) COPD (chronic obstructive pulmonary disease): Status: Acute Assessment and Plan Assessment and Plan for All Diagnoses:: Nstemi/unstable angina CCS 3 -Trop 0.09- 0.11 with persistent chest pain at rest -Give aspirin 81mg PO QD, Brilinta 180mg PO QD x 1, Lovenox 1mg/kg subQ BID, metoprolol 25mg BID and high dose statin. -Left heart cath scheduled for today. Previously discussed risk versus benefit with patient and she is agreeable. Hypertension -Systolic blood pressure noted to be 1 4150 throughout the night -We will add losartan 50 mg daily Hyperlipidemia -LDL 140, triglycerides 172. -Patient started on high-dose statin yesterday. CV summary 03/27/2022: Left heart cath pending for this morning. Patient started on losartan 50 mg daily.
--- NOTE | 2022-03-27 08:59 | PC.NURSE ---
pt told this rn that she cannot have contrast because she only has one kidney. pathology laboratory aides teacher made aware. also made Nikolai Colon aware during rounds this am
--- NOTE | 2022-03-27 09:37 | ECG_ITS ---
APPROVED REPORT Exam: Resting ECG HR:51 bpm ECG Measurements Heart Rate 51 AXES WV 236 P 59 QRSd 90 QRS 18 QT 487 T -21 QTc 465 Conclusion SINUS BRADYCARDIA WITH FIRST DEGREE AV BLOCK LOW QRS VOLTAGE IN PRECORDIAL LEADS [QRS DEFLECTION < 1.0 mV IN CHEST LEADS] POSSIBLE RIGHT VENTRICULAR CONDUCTION DELAY [RSR (QR) IN V1/V2] ABNORMAL ECG UNCONFIRMED REPORT Electronically signed by : Josh Castillo MD 03/27/2022 19:54:00
--- NOTE | 2022-03-27 10:00 | IR_ITS ---
APPROVED REPORT Patient Location: [facility]patient [facility]: AJIT Meraz RT (R) PROCEDURES Left heart catheterization Left ventriculogram Selective coronary angiogram Drug-eluting stent deployment to the proximal and mid LAD in a contiguous manner INDICATION Coronary artery disease with acute non-ST elevation myocardial infarction Informed consent was obtained prior to the procedure. COMPLICATIONS None Estimated Blood Loss: Less than 10 mls TECHNIQUE One percent lidocaine used to anesthetize the right anterior aspect of the wrist. The right radial artery was accessed via the Seldinger technique. A 6 [place] sheath was placed in the right radial artery. 2.5 mg of verapamil, 800 mcg of nitroglycerin, 1mg Lidocaine and 5000 U Heparin were given through the arterial sheath. The papa catheter was also used to perform selective coronary angiogram. At the end the diagnostic angiogram therapeutic heparin was administered giving a therapeutic ACT and the guide catheter was placed in the right coronary followed by a Choice PT extra-support wire. A 2.5 x 38 mm resolute [place] stent was deployed at 24 esa reducing the critical stenosis. A 3 mm x 20 mm balloon was then deployed at 20, 22 and then 24 esa. Repeat angiography demonstrated a poor distal transition into the distal vessel therefore 3.5 x 12 mm resolute [place] stent was placed distal to the first stent yet still overlapping it and deployed at 18 esa. The balloon was brought back and deployed at 24 esa up and down the 2.5 mm stent to post dilate. Excellent angiographic results were obtained with CANDY-3 flow being present before and after the procedure. At the end of procedure the apparatus was removed the sheath was removed and hemostasis achieved using TR banding patient was transferred to the postop putting in stable condition ANGIOGRAPHIC RESULTS The left main artery Normal The left anterior descending artery Has proximal 10% luminal irregularities with mild diffuse luminal regularities throughout The circumflex artery Nondominant with mild diffuse 10% luminal regularities The right coronary artery Is dominant and has critical tandem 90% stenoses with a mid vessel eccentric 60% calcified stenosis The BANDA ventriculogram reveals Not performed The left ventricular end-diastolic pressure Not measured IMPRESSION Critical proximal dominant right coronary disease as described above with successful stenting reducing the critical stenoses to less than 10% with 2 contiguous drug-eluting stents PLAN 1. Brilinta 90 twice daily plus aspirin 81 mg daily 2. LDL less than 55 to be achieved with high intensity statin 3. Avoidance of tobacco products 4. Cardiac rehabilitation 5. Aggressive risk factor modification Electronically signed by : Manuel Prince MD 03/27/2022 12:25:48
--- NOTE | 2022-03-27 13:16 | EXP.DC.SUM ---
General Admission date:: 03/26/22 Discharge date: 03/27/22 HPI HPI HPI: Snow Lopez is a 51-year-old female that presents to [facility] emergency department with concerns of chest pain over the last 48 hours. Her past medical history is significant for psoriasis, COPD with ongoing tobacco dependence and opioid dependency. She reports yesterday afternoon she started experiencing chest pain characterizes pressure and radiating to her left upper extremity. It lasted approximately 5 minutes and was intermittent. Throughout today she identified that it was exacerbated with exertion. She identified associated diaphoresis but no nausea or vomiting. She experienced no acute dyspnea, confusion or palpitations. She did not sleep well. This morning her chest pressure crescendoed so she presented to the emergency department for evaluation. In the ED her initial troponin was elevated and the second troponin crescendo. Her ECG identified incomplete right bundle branch block with no acute ST-T changes. Cardiology was consulted out of the ED. Hospital Course Hospital Course Hospital Course: 51-year-old female with history of tobacco dependence and COPD who presents with chest discomfort. EKG with right bundle branch block but no ST elevations. Admitted to medicine for monitoring overnight of serial troponins. Cardiology consulted, patient taken to the Geodetic Surveyor Technologist for NSTEMI. Problems addressed as follows: NSTEMI CAD ?telemetry monitoring, serial troponins monitored. Cardiology consulted. Started on antiplatelet therapy, statin, beta-tyler anticoagulation. Patient n.p.o. at midnight. Taken to the Geodetic Surveyor Technologist on Saturday with findings as below per cath report. Successful stenting of critically stenosed proximal dominant right coronary artery. Patient medically stable for discharge home with continued goal-directed therapy. Discharged on Brilinta 90 mg twice a day, Aspirin 81 mg daily, high intensity statin Lipitor 80 mg daily, pantoprazole for GI protection in the setting of DAPT therapy, and initiated on metoprolol and irbesartan for blood pressure control. -Plan to follow-up with cardiology and PCP within the next 2 weeks. COPD ?ongoing tobacco dependence noted, tobacco cessation education, nicotine replacement therapy, Shannan/Winston inhalation therapy, ICS therapy. Stable on room air during admission. Left heart cath results: ANGIOGRAPHIC RESULTS The left main artery Normal The left anterior descending artery Has proximal 10% luminal irregularities with mild diffuse luminal regularities throughout The circumflex artery Nondominant with mild diffuse 10% luminal regularities The right coronary artery Is dominant and has critical tandem 90% stenoses with a mid vessel eccentric 60% calcified stenosis The BANDA ventriculogram reveals Not performed The left ventricular end-diastolic pressure Not measured IMPRESSION Critical proximal dominant right coronary disease as described above with successful stenting reducing the critical stenoses to less than 10% with 2 contiguous drug-eluting stents PLAN 1. Brilinta 90 twice daily plus aspirin 81 mg daily 2. LDL less than 55 to be achieved with high intensity statin 3. Avoidance of tobacco products 4. Cardiac rehabilitation 5. Aggressive risk factor modification Discharged home in stable condition. No further inpatient needs. Exam Data for Last 24 hours Vital signs and Labs for Last 24 Hours: Temp Pulse Resp BP Pulse Ox 97.5 F L 52 L 18 168/79 H 100 03/27/22 08:00 03/27/22 12:40 03/27/22 12:40 03/27/22 12:40 03/27/22 12:40 Laboratory Results - last 24 hr 03/26/22 14:58: Troponin I 0.15 H 03/27/22 07:22: WBC 6.2, RBC 4.52, Hgb 13.1, Hct 40.9, MCV 90.5, MCH 29.0, MCHC 32.1, RDW 13.4, Plt Count 250, MPV 7.7, Neut % (Auto) 63.4, Lymph % (Auto) 27.1, [place] % (Auto) 4.6, Eos % (Auto) 2.9, Baso % (Auto) 1.9, Neut # (Auto) 3.9, Lymph # (Auto) 1.7, [place] # (Auto) 0.3, Eo
[2022-03-27 13:36] LABS: CATHL Activated Clotting Time > 400 SEC (74-125)
--- NOTE | 2022-03-27 14:40 | HMH.PHAINT1 ---
Pharmacy Intervention Comments: Discharge counseling completed at bedside with the patient and . Discussed new medications (aspirin, atorvastatin, irbesartan, metoprolol tartrate, and ticagrelor), and continued medications. Completed metallurgical laboratory assistant bedside counseling including indication of each new medication and possible side effects/mitigation strategies for each. Patient verbalized understanding and has no questions or concerns at this time.
--- NOTE | 2022-03-27 16:45 | EXP.ACUTE.PN ---
Subjective *Date: 03/27/22 *Time: 16:45 Interval history: Patient went to Senior Planning Manager today, plan was to discharge however she is remained hypertensive through the afternoon. Systolics 150-180. Denies any chest pain or shortness of breath. Still has compression band on right wrist. No nausea, vomiting. Alert and oriented on exam. Questions answered Medical Exam Vital signs and Labs for Last 24 Hours: Vital Signs Temp Pulse Pulse Pulse Resp BP BP 03/27/22 12:40 52 L 18 168/79 H 03/27/22 12:35 50 L 18 172/81 H 03/27/22 12:30 54 L 18 162/97 H 03/27/22 12:25 52 L 18 149/84 H 03/27/22 12:35 59 L 03/27/22 12:24 70 75 18 149/84 H 03/27/22 08:00 97.5 F L 65 19 03/27/22 06:20 58 L 03/27/22 06:20 57 L 03/27/22 06:20 03/27/22 04:00 50 L 03/27/22 04:00 98.7 F 66 18 03/26/22 20:00 50 L 03/27/22 01:00 40 L 03/27/22 00:00 98.1 F 50 L 18 03/27/22 00:04 45 L 03/27/22 00:04 52 L 03/26/22 20:00 98.1 F 53 L 18 03/26/22 18:40 52 L 03/26/22 18:40 53 L 03/26/22 17:06 98.2 F 52 L 12 03/26/22 16:46 98.0 F 55 L 18 152/81 H BP Pulse Ox 03/27/22 12:40 100 03/27/22 12:35 100 03/27/22 12:30 100 03/27/22 12:25 100 03/27/22 12:35 03/27/22 12:24 97 03/27/22 08:00 151/50 H 100 03/27/22 06:20 03/27/22 06:20 03/27/22 06:20 98 03/27/22 04:00 03/27/22 04:00 130/68 97 03/26/22 20:00 03/27/22 01:00 03/27/22 00:00 125/67 100 03/27/22 00:04 03/27/22 00:04 03/26/22 20:00 142/83 H 99 03/26/22 18:40 03/26/22 18:40 03/26/22 17:06 152/81 H 99 03/26/22 16:46 Intake and Output 03/27/22 03/27/22 03/27/22 07:59 15:59 23:59 Intake Total 615 / 615 Output Total 800 / 800 0 / 800 Balance -185 / -185 0 / -185 Intake: Intake, Total IV Amount 615 / 615 0.9 % Sodium Chloride 1,000 ml 615 / 615 @ 50 mls/hr IV .Q[facility] Rx#: [id number] Output: Output, Urine Amount 800 / 800 0 / 800 Other: Number of Voids 0 Weight 87.362 kg Patient Weight 03/27/22 23:59 Weight 87.362 kg Laboratory Results - last 24 hr 03/27/22 07:22: WBC 6.2, RBC 4.52, Hgb 13.1, Hct 40.9, MCV 90.5, MCH 29.0, MCHC 32.1, RDW 13.4, Plt Count 250, MPV 7.7, Neut % (Auto) 63.4, Lymph % (Auto) 27.1, [place] % (Auto) 4.6, Eos % (Auto) 2.9, Baso % (Auto) 1.9, Neut # (Auto) 3.9, Lymph # (Auto) 1.7, [place] # (Auto) 0.3, Eos # (Auto) 0.2, Baso # (Auto) 0.1 03/27/22 07:22: PT 10.3, INR 0.95 03/27/22 07:22: Sodium 139, Potassium 4.1, Chloride 106, Carbon Dioxide 28, Anion Gap 9.1, BUN 12, Creatinine 0.80, Estimated Creat Clear 112, Estimated GFR 75, Est GFR ( Amer) 91, Glucose 96 D, Calcium 8.8, Magnesium 1.7, Triglycerides 172 H, Cholesterol 232 H, LDL Cholesterol Direct 140.29 H, VLDL Cholesterol 34, HDL Cholesterol 40, Cholesterol/HDL Ratio 5.8 H 03/27/22 13:04: Activated Clotting Time > 400 H* I & O for Labs for Last 24 Hours: Intake & Output 03/24/22 03/25/22 03/26/22 03/27/22 23:59 23:59 23:59 23:59 Intake Total 240 / 240 615 / 615 Output Total 0 / 0 800 / 800 Balance 240 / 240 -185 / -185 Weight 84.935 kg 87.362 kg Constitutional: Present no acute distress and obese Head: Present atraumatic and normocephalic ENT: Present normal exam Neck: Present normal inspection Respiratory: Present normal respiratory effort; Absent accessory muscle use, rhonchi, wheezes or crackles Cardiac: Present Reg Rate and Rhythm GI: Present soft and normal bowel sounds; Absent distention or tenderness Extremities: Present normal inspection and full ROM Comment:: Compression band on right wrist Skin: Present intact; Absent erythema Neuro: Present Grossly Intact, alert, awake, oriented x 3 and moves all extremities Assessment and Plan *Assessment and plan (1) Non-ST elevation CA (NSTEMI): Status: Acut
--- NOTE | 2022-03-27 18:37 | PC.NURSE ---
Received patient back from cathlab. No complaints of pain, just soreness at radial site. Systolic blood pressures between 170-190's. Patient stated she didn't feel good. Dr. Thomson notified and one dose of enalapril given iv as well as avapro po. Patient systolic pressure still elevated in 170's and patient's discharge cancelled. Methadone reordered and 40 mg po given. Patient stated hse was starting to feel a little better, systolic in 160's. Dr. Thomson notified and stated to still give prn one time dose of avapro at 1999 if blood pressure still elevated in 160's or above. Radial band removed, no bleeding, gauze and tegaderm placed over radial site.
[2022-03-28] VITALS: PULSE 50
[2022-03-28 03:50] VITALS: BP 93/56; PULSE 73; RESP 20; TEMP 36.7; O2SAT 100
[2022-03-28 04:00] VITALS: PULSE 60
[2022-03-28 04:54] VITALS: BMI 29.9
[2022-03-28 06:00] VITALS: PULSE 61; PULSE 62; O2SAT 97
--- NOTE | 2022-03-28 06:21 | PC.NURSE ---
NO ACUTE CHANGES SINCE PREVIOUS ASSESSMENT. PT HAS SLEPT WELL THIS SHIFT. LUNG SOUNDS CLEAR. PT HAS STATED THAT HER CATH SITE IS TENDER/SORE TO TOUCH. CATH SITE IS SLIGHTLY BRUISED. NO C/O PAIN, SOB THIS SHIFT. AMBULATING INDEPENDENTLY. CALL HARTMAN WITHIN REACH.
[2022-03-28 07:59] VITALS: BP 104/54; PULSE 81; RESP 16; TEMP 36.8; O2SAT 99
[2022-03-28 08:00] VITALS: PULSE 57
--- NOTE | 2022-03-28 09:36 | EXP.CARD.PN ---
Subjective Subjective Date: 03/28/22 Time: 08:00 Principal diagnosis: NSTEMI Interval history: Patient resting comfortably. Was observed overnight due to hypertension status post left heart cath yesterday, greatly improved today with systolic running in the low 100. Patient denies chest pain or shortness of breath. Right radial access-mild bruising present, no swelling, tenderness, or obvious bleeding present. Exam Data for Last 24 hours Vital signs and Labs for Last 24 Hours: Temp Pulse Resp BP Pulse Ox 98.3 F 81 16 104/54 L 99 03/28/22 07:59 03/28/22 07:59 03/28/22 07:59 03/28/22 07:59 03/28/22 07:59 Laboratory Results - last 24 hr 03/27/22 13:04: Activated Clotting Time > 400 H* I & O for Last 24 hours: Intake & Output 03/25/22 03/26/22 03/27/22 03/28/22 23:59 23:59 23:59 23:59 Intake Total 240 / 240 855 / 855 300 / 300 Output Total 0 / 0 800 / 800 850 / 850 Balance 240 / 240 55 / 55 -550 / -550 Weight 187 lb 4 oz 192 lb 9.6 oz 190 lb 14.4 oz Constitutional Constitutional: no acute distress *Routine HEENT Exam Head: Present normocephalic Eye: Present EOMI and PERRL ENT: Present mucous membranes moist *Routine Neck Exam Neck: Present supple; Absent lymphadenopathy *Routine Respiratory Exam Respiratory: Present CTA bilaterally *Routine Cardiovascular Exam Cardiovascular: Present RRR *Routine Abdominal Exam Abdominal: Present soft and normoactive bowel sounds; Absent tenderness *Routine Extremities Exam Extremities: Absent cyanosis, clubbing or edema *Routine Skin Exam Skin: Present warm; Absent rash *Routine Neurological Exam Neurological: Present alert and oriented X3 Progress Note: A&P Assessment and plan (1) Non-ST elevation [place] (NSTEMI): Status: Acute (2) COPD (chronic obstructive pulmonary disease): Status: Acute Assessment and Plan Assessment and Plan for All Diagnoses:: Nstemi/unstable angina CCS 3 -Trop 0.09- 0.11 with persistent chest pain at rest -Give aspirin 81mg PO QD, Brilinta 180mg PO QD x 1, Lovenox 1mg/kg subQ BID, metoprolol 25mg BID and high dose statin. -Left heart cath scheduled for today.? Previously discussed risk versus benefit with patient and she is agreeable. 03/28/2022:[facility] 03/1322-critical proximal dominant right coronary disease was noted with successful stenting with 2 drug-eluting stents. Continue aspirin 81 mg p.o. daily, Brilinta 90 mg p.o. twice daily, metoprolol 25 mg p.o. twice daily, and atorvastatin 80 mg p.o. daily Hypertension -Systolic blood pressure noted to be elevated throughout the night -Continue losartan 50 mg daily Hyperlipidemia -LDL 140, triglycerides 172. -Patient started on high-dose statin yesterday. CV summary: Patient CV stable for discharge. Please send patient home on below listed cardiac meds. Patient needs cardiology clinic follow-up in 2 weeks. Please advise patient to bring twice daily BP log with her to appointment, we will adjust meds based on blood pressure readings. Cardiac meds for discharge home Aspirin 81 mg p.o. daily Brilinta 90 mg p.o. twice daily Metoprolol 25 mg p.o. twice daily Atorvastatin 80 mg p.o. daily losartan 50 mg p.o. daily
--- NOTE | 2022-03-28 10:32 | PC.NURSE ---
pt told this rn that hse did not want to take her methadone here at the hospital and would rather wait until she was home.
--- NOTE | 2022-03-29 13:15 | CARE MANAGER ---
Spoke with patient for post-discharge phone interview, she is aware of her follow-up appointments and medications were obtained.
== END 2022-03-28 10:57 | disposition home or self-care (01) | DRG 247 ==
LOC: ER 13:39 → 2ND 16:20
PROVIDERS: Internal Medicine; Admitting Provider Family Medicine; Emergency Provider Student in an Organized Health Care Education/Training Program; PCP Emergency Medicine; Visit Provider Internal Medicine Adolescent Medicine
PROC: 4A023N7 Measurement of Cardiac Sampling and Pressure, Left Heart, Percutaneous Approach (ICD-10-PCS; principal; 2022-03-27 08:00)
DX: I21.4 Non-ST elevation (NSTEMI) myocardial infarction (principal); F11.20 Opioid dependence, uncomplicated; J44.9 Chronic obstructive pulmonary disease, unspecified; I25.110 Atherosclerotic heart disease of native coronary artery with unstable angina pectoris; E78.5 Hyperlipidemia, unspecified; Z71.6 Tobacco abuse counseling; F17.200 Nicotine dependence, unspecified, uncomplicated
CPT/HCPCS: 36415; 71045; 80048; 80061; 83735; 84484; 85025; 85347; 85610; 92928; 93005; 93458; 94640; 99152; 99153; 99285; C1725; C1769; C1876; C9600; C9803; J1644; Q9967; U0003; U0005

== ENCOUNTER → 2022-04-05 14:53 | Outpatient (CLI) | payer MEDICAID, SELFPAY ==
[2022-04-05 15:10] LABS: Basophils # 0.1 K/mm3 (0-0.2); Basophils % 1.5 % (0.1-2.0); Eosinophils # 0.2 K/mm3 (0.0-0.4); Eosinophils % 2.9 % (0.1-12.0); Hematocrit 41.6 % (37.0-47.0); Lymphocytes % 29.2 % (10-50); Mean Corpuscular HGB Conc 31.1 g/dL (31.8-35.4); Mean Corpuscular Hemoglobin 28.7 pg (27.0-31.2); Mean Corpuscular Volume 92.3 fl (81-99); Mean Platelet Volume 8.1 fl (7.4-10.4); Monocytes # 0.4 K/mm3 (0.1-1.0); Neutrophils # 4.3 K/mm3 (1.8-7.8); Neutrophils % 61.4 % (37.0-80.0); Platelet Count 320 K/mm3 (142-424); Red Blood Count 4.51 M/mm3 (4.20-5.40); Red Cell Distribution Width 13.1 % (11.5-17.5)
[2022-04-05 15:54] LABS: Anion Gap 9.4 mEq/L (5-15); Blood Urea Nitrogen 17 mg/dl (7-17); Calcium 9.3 mg/dl (8.4-10.2); Carbon Dioxide 28 mmol/L (22.0-30.0); Chloride 106 mmol/L (98-107); Estimated Glomerular Filt Rate 65 ml/min (>60); GFR (African American) 79 ML/MIN (>60); Glucose 120 mg/dl (74-100); Potassium 4.4 mmoL/L (3.5-5.1); Sodium 139 mmol/L (136-145)
== END ==
PROVIDERS: PCP Emergency Medicine; Visit Provider Physician Assistant
DX: R06.00 Dyspnea, unspecified (principal); R07.9 Chest pain, unspecified; I21.4 Non-ST elevation (NSTEMI) myocardial infarction; I25.10 Atherosclerotic heart disease of native coronary artery without angina pectoris; R00.1 Bradycardia, unspecified; I44.0 Atrioventricular block, first degree; J44.9 Chronic obstructive pulmonary disease, unspecified; R94.31 Abnormal electrocardiogram [ECG] [EKG]; I63.9 Cerebral infarction, unspecified
CPT/HCPCS: 36415; 80048; 85025

== ENCOUNTER → 2022-07-27 13:43 | Outpatient (CLI) | payer MEDICAID, SELFPAY | PROVIDERS: PCP Emergency Medicine; Visit Provider Nurse Practitioner Family | DX: G47.9 Sleep disorder, unspecified (principal); G47.30 Sleep apnea, unspecified; G47.10 Hypersomnia, unspecified; I10 Essential (primary) hypertension; R06.83 Snoring | CPT/HCPCS: 95806 ==

== ENCOUNTER → 2022-11-05 23:00 | Outpatient (CLI) | payer MEDICAID, SELFPAY ==
[2022-11-05 19:05] LABS: T4 (Thyroxine) 7.8 ug/dl (5.53-11.0)
[2022-11-05 19:19] LABS: Thyroid Stimulating Hormone 1.83 uIU/mL (0.465-4.68)
[2022-11-05 21:11] LABS: Hemoglobin A1C 6.1 % (4.0-6.0)
== END ==
PROVIDERS: PCP Emergency Medicine; Visit Provider Emergency Medicine
DX: R53.83 Other fatigue (principal); E66.9 Obesity, unspecified; Z68.32 Body mass index [BMI] 32.0-32.9, adult
CPT/HCPCS: 83036; 84436; 84443

== ENCOUNTER → 2022-12-06 14:57 | Outpatient (CLI) | payer MEDICAID, SELFPAY ==
--- NOTE | 2022-12-06 14:57 | MR_ITS ---
FINAL REPORT CLINICAL HISTORY: back pain. bilateral leg pain, numbness and tingling COMPARISON: 05/25/2019 FINDINGS: Multiplanar MR imaging of the lumbar spine was performed without contrast. On the sagittal T2-weighted images, there is abnormal decreased signal of the L3-4, L4-5, and L5-S1 discs. The vertebrae are of normal height. The vertebral alignment is normal. L1-2: There is no significant canal stenosis or neural foraminal narrowing. L2-3: There is no significant canal stenosis or neural foraminal narrowing. L3-4: There is no significant canal stenosis or neural foraminal narrowing. L4-5: Mild diffuse disc bulge. Mild bilateral neural foraminal narrowing. L5-S1: Mild diffuse disc bulge. [id number] bilateral neural foraminal narrowing. Note is made of prominent S1-2 disc, very similar to prior. IMPRESSION: Disc bulges at L4-5 and L5-S1 with neural foraminal narrowing. Reviewed, Interpreted and Dictated by Emil Thompson MD Transcribed by Kristen Ham Authenticated and [facility]
== END ==
PROVIDERS: PCP Emergency Medicine; Visit Provider Emergency Medicine
DX: M54.9 Dorsalgia, unspecified (principal); M54.50 Low back pain, unspecified
CPT/HCPCS: 72148; 76376

== ENCOUNTER → 2023-01-09 14:34 | Outpatient (CLI) | payer MEDICAID, SELFPAY ==
[2023-01-09 15:47] LABS: Alanine Aminotransferase 18 U/L (12-78); Albumin Level 3.7 g/dl (3.5-5.0); Alkaline Phosphatase 172 U/L (38-126); Aspartate Amino Transferase 25 U/L (14-36); Bilirubin,Indirect 0.3 mg/dL (0.0-0.9); Bilirubin,Total 0.3 mg/dl (0.2-1.3); Bilirubin,Unconjugated 0.2 mg/dL (0.0-1.1); Chol/HDL Ratio 4.5 (1-3.5); Cholesterol 197 mg/dl (140-200); HDL Cholesterol 44 mg/dl (40-60); Total Protein,Serum 6.5 g/dl (6.3-8.2); Triglycerides 196 mg/dl (30-150); VLDL Cholesterol 39 mg/dL (0-40)
[2023-01-09 15:58] LABS: Direct LDL Cholesterol 126.29 mg/dL (100-129)
== END ==
PROVIDERS: PCP Emergency Medicine; Visit Provider Physician Assistant
DX: I11.9 Hypertensive heart disease without heart failure (principal); I25.10 Atherosclerotic heart disease of native coronary artery without angina pectoris; I44.0 Atrioventricular block, first degree; J44.9 Chronic obstructive pulmonary disease, unspecified; R06.00 Dyspnea, unspecified; R94.31 Abnormal electrocardiogram [ECG] [EKG]; Z72.0 Tobacco use
CPT/HCPCS: 36415; 80061; 80076

== ENCOUNTER → 2023-02-25 14:47 | Outpatient (POV) | payer MEDICAID, SELFPAY ==
--- NOTE | 2023-02-25 15:02 | EXP.PAIN.OV ---
HPI Data of Consult Patient: new to practice Consult date: 02/25/23 Requesting Physician: Lina Khan APRN Primary Care Provider: Philippe Myers MD Consult Narrative Reason for consult: Low back pain History of present illness: Ms. Lopez is a 52 year old female who presents today as a new patient. She is a referral from Dr. Myers's office. Today she rates her pain a 8 out of 10. Patient states her pain is all in her low back with radiating symptoms into her bilateral lower extremities including her bilateral feet and left knee. Patient states has been going on for at least 1 year and progressively worsened over time. Patient denies any specific trauma or injury that initially started her symptoms. Patient does describe this as an aching, throbbing sensation with occasional sharp shooting pains. Patient does state that it frequently worsens with increased activity or ambulation and that she has to stop and take multiple breaks. She states it does interfere with her ability perform activities of daily living such as housework or even doing the laundry or dishes. Patient does state over the last year she has tried Tylenol and ibuprofen along with heat and ice and topicals with no additional relief. Patient states that physical therapy and chiropractor may have been done years ago and that she does not remember improving any of her symptoms. Patient is is currently on methadone 90 mg daily from an outside provider. Patient does have a history of COPD and cardiac issues. patient's Rajiv shows no scheduled medications. Its been reviewed and appropriate. CC: Lina Khan APRN [facility] Disclaimer: The information contained in this section may have been updated after the patient was seen, as this information can be updated by other users. Medical History Anxiety Cancer COPD (chronic obstructive pulmonary disease) Depression Psoriasis Surgical History History of cardiac cath History of kidney removal History of kidney surgery Hx of hysterectomy, total Family History Other Cancer Hypertension Social History Smoking Status: Current every day smoker tobacco type: cigarettes packs per day: 1 alcohol intake: never substance use type: denies use current occupational status: unemployed Travel in the last 8 weeks: None Review of Systems Review of Systems Review of systems:: pertinent systems reviewed and negative unless documented below Review of systems (narrative): Review of Systems: General: No recent weight changes, no fever, no sleep disturbances Respiratory: No cough, no shortness of air, no recurring pulmonary infections Cardiovascular/peripheral vascular: No chest pain, no palpitations, no edema, no shortness of breath Gastrointestinal: No new onset incontinence, normal bowel movements reported Genitourinary: No new onset incontinence Musculoskeletal: Low back pain, bilateral leg pain, left knee pain, bilateral feet pain Psychiatric: [Normal mood/affect] Neurological: [Denies weakness in extremities], [denies balance issues] Meds Home Medications and Allergies Home Medications Medication Instructions Recorded Confirmed Type methadone 5 mg/5 mL oral solution 90 mg PO DAILY opioid use disorder 03/27/22 02/15/23 History clopidogrel 75 mg tablet See Rx Instructions .Route 11/05/22 02/15/23 Rx .COMPLEX #90 tabs polyethylene glycol 3350 17 See Rx Instructions .Route 11/08/22 02/15/23 Rx gram/dose oral powder .COMPLEX #510 grams albuterol sulfate 90 mcg/actuation See Rx Instructions .Route 02/15/23 02/15/23 Rx aerosol inhaler (Ventolin HFA) .COMPLEX #18 grams aspirin 81 mg chewable tablet See Rx Instructions .Route 02/15/23 02/15/23 Rx .COMPLEX #30 ea atorvastatin 40 mg tablet
[2023-02-25 15:06] VITALS: BP 129/76; PULSE 70; RESP 18; O2SAT 96; BMI 31.3
== END ==
PROVIDERS: PCP Emergency Medicine; Visit Provider Nurse Practitioner Family
DX: M51.16 Intervertebral disc disorders with radiculopathy, lumbar region (principal); M54.50 Low back pain, unspecified; G89.29 Other chronic pain; M79.671 Pain in right foot; M79.672 Pain in left foot
CPT/HCPCS: 99202; G0463

== ENCOUNTER 2024-02-28 12:20 | Outpatient (CLI) | payer MEDICAID, SELFPAY ==
--- NOTE | 2024-02-28 | CA_ITS ---
APPROVED REPORT Exam: Pharmacologic Technologist: Jayda Gomez Ht: 5 ft 7 in Wt: 198 lbs BSA: 2.01 m2 HR: 56 bpm BP: 153/66 mmHg Rhythm: sinus lexx, otherwise normal Medical History Cardiac Risk Factors: HTN, FHX of CAD, Smoking Stress Test Details HR Resting HR: 56 bpm Max Heart Rate (APMHR): 165.616190 bpm Target HR (85% APMHR): 140.573929 bpm Recovery HR: 73 bpm BP Resting BP: 153.0/66.0 mmHg Recovery BP: 118.0/70.0 mmHg ECG Resting ECG: sinus lexx, otherwise normal Stress ECG Conclusion Switched from delfino due to inadequate HR reponse and severe dyspnea. During lexiscan pt experinced SOA, head discomfort. No CP noted. No arrhythmias noted. No significant ST changes. Unremarkable lexiscan stress. Electronically signed by : Maryjo Leung MD 03/02/2024 01:18:03
--- NOTE | 2024-02-28 12:24 | NM_ITS ---
APPROVED REPORT Exam: Nuclear Stress Test Indication: cad, 2 stents, htn, hyperlipidemia, tob use, fm hx, c.p., sob, palpitations, fatigue Patient Location: Outpatient Stress Tech: [facility] Tech:Edita Apple AJIT RT (R)(N)(M) Ht: 5 ft 7 in Wt: 195 lbs Bra Size: 38ddd HR: 56 bpm BP: 153/66 mmHg BSA: 2.00 m2 TID: 1.11 BMI: 30.5 History: cad, 2 stents, htn, hyperlipidemia, tob use, fm hx, c.p., sob, palpitations, fatigue Procedure: Patient received 0.4 mg of intravenous Lexiscan, resting heart rate 56 bpm, resting blood pressure 153/66 mmHg, with Lexiscan maximum heart rate achieved was 84 bpm which is % of the maximum predicted heart rate and blood pressure was 122/66 mmHg. With Lexiscan, patient denied any complaint of chest pain. Cardiac Stress and Resting SPECT Images: Cardiac Stress and Resting SPECT images were obtained using technetium 99m Myoview 31.5 mCi stress and 10.71 mCi at rest. Technically difficult study due to significant soft tissue overlap with the cardiac borders. This may affect the diagnostic interpretation of the study findings. Resting and stress imaging in supine and prone positions demonstrate a medium sized, moderate, predominantly fixed perfusion defect in the distal inferoinferior apical LV guardado. There is minimal region of surrounding reversibility Gated imaging demonstrates normal global and regional LV systolic function. LVEF is calculated at 64%. Conclusion: Technically difficult study due to significant soft tissue overlap with the cardiac borders. Medium sized, moderate, predominantly fixed perfusion defect in the distal inferoinferior apical LV guardado. There is minimal region of surrounding reversibility Gated imaging demonstrates normal global and regional LV systolic function. LVEF is calculated at 64%. Electronically signed by : Maryjo Leung MD 03/02/2024 01:22:19
--- NOTE | 2024-02-28 12:24 | CA_ITS ---
APPROVED REPORT EXAM: Comprehensive 2D, Doppler, and color-flow Echocardiogram Scouring Pads Supervisor: Afua Fletcher RDCS Ht: 5 ft 7 in Wt: 198lbs BSA: 2.01 BP: 118/67 mmHg Indications: CP,CAD,ABN EKG,SMOKER,HLP M-Mode Dimensions RVDd 2.64 cm (0.9-2.6) LA Diam 3.52 cm (1.9-4.0) LVDd 5.64 cm (3.5-5.7) LVDs 3.60 cm (3.5-5.7) IVSd 0.79 cm (0.6-1.1) PWd 0.75 cm (0.6-1.1) EF (Teich) 65.20% FS 36.20% EDV (Teich) 156.20 mL ESV (Teich) 54.40 mL LV Diastology E Decel Time 243 (160-240 msec) E/A Ratio 1.3 Mitral Valve MV E Max Lcaho. 73.0 (40-130 cm/s) MV A Velocity 58.0 (40-130 cm/s) E/A Ratio 1.25 MV PHT 71.0 ms Left Ventricle The left ventricle is normal size. The left ventricular systolic function is normal. The left ventricular ejection fraction is within the normal range. There is increased LV wall thickness. There is normal LV segmental wall motion. The left ventricular diastolic function is normal. LVEF is 55%. Right Ventricle The right ventricle is normal size. The right ventricular systolic function is normal. Atria The left atrium size is normal. The right atrium size is normal. There is no Doppler evidence of interatrial shunt. Aortic Valve The aortic valve is mildly thickened. There is no aortic valvular stenosis. No aortic regurgitation is present. Mitral Valve The mitral valve is normal in structure. No evidence of mitral valve stenosis. Trace mitral regurgitation. Tricuspid Valve The tricuspid valve leaflets are thin and pliable. Trace tricuspid regurgitation. There is insufficient TR jet to estimate RVSP. Pulmonic Valve The pulmonary valve is normal in structure. Trace pulmonic regurgitation. Great Vessels The aortic root is normal in size. The ascending aorta is not well-visualized. IVC is normal in size and collapses >50% with inspiration. Pericardium There is no pericardial effusion. Other Information Study Quality: Adequate Conclusion Normal biventricular systolic function. No significant valvular stenosis or regurgitation. Electronically signed by : Maryjo Leung MD 03/05/2024 01:32:57
[2024-02-28] MEDS: SODIUM CHLORIDE 0.9% 10ML SYR (RAD ONLY) 10 ML IV ×2 (12:30→14:00)
[2024-02-28] MEDS: REGADENOSON 0.4MG/5ML SYRINGE 0.4 MG IV (14:00)
[2024-02-28] MEDS: ISOTOPE MYOVIEW (PER STUDY) 1 DOSE IV (15:06)
== END 2024-02-28 23:59 | disposition home or self-care (01) ==
LOC: RAD 12:21
PROVIDERS: PCP Nurse Practitioner; Visit Provider Nurse Practitioner Family
DX: R07.89 Other chest pain (principal); R06.09 Other forms of dyspnea; I44.0 Atrioventricular block, first degree
CPT/HCPCS: 78452; 93017; 93018; 93306; A9502; J2785

== ENCOUNTER 2024-03-18 08:35 | Day surgery (SDC) | payer MEDICAID, SELFPAY ==
[2024-03-18] VITALS (11 sets, daily range): BP systolic 134–197; BP diastolic 75–110; PULSE 52–75; RESP 18–20; TEMP 36.1; O2SAT 95–98; BMI 30.7
--- NOTE | 2024-03-18 07:27 | IR_ITS ---
APPROVED REPORT Patient Location: Outpatient Quilting Machine Operator: Philippe Leonardo, RT (R) PROCEDURES Selective coronary angiogram Drug-eluting stent deployment to the proximal first diagonal artery INDICATION Coronary artery disease, Abnormal Myoview, Angina pectoris, Informed consent was obtained prior to the procedure. COMPLICATIONS None Estimated Blood Loss: Less than 10 mls TECHNIQUE One percent lidocaine used to anesthetize the right anterior aspect of the wrist. The right radial artery was accessed via the Seldinger technique. A 6 [place] sheath was placed in the right radial artery. 2.5 mg of Verapamil, 800 mcg of nitroglycerin, 1mg Lidocaine and 5000 U Heparin were given through the arterial sheath. The 6 [place] JL 3 guide catheter was used to perform selective coronary angiogram. At the end of the diagnostic angiogram therapeutic heparin was administered giving a therapeutic ACT and the guide catheter was placed in left main artery followed by Choice PT extra-support wire placed on the first diagonal artery. A 2 mm x 18 mm [place] frontier stent was deployed at 24 esa reducing the severe stenosis to 0%. CANDY II flow was present at the beginning the procedure with CANDY-3 flow at the end of the procedure. 800 mcg of intracoronary nitroglycerin was administered. Then the procedure the apparatus was removed the sheath was removed and hemostasis was achieved using TR banding patient was transferred to the postop putting in stable condition ANGIOGRAPHIC RESULTS The left main artery Normal The left anterior descending artery Has proximal 10% stenosis with a mid vessel eccentric 30 to 40% stenosis along a tortuous bend. A large first diagonal artery has a mid vessel concentric 90% stenosis with a distal concentric 80% stenosis The circumflex artery Is nondominant and has proximal 10% stenosis with 10 to 20% stenosis in a large first obtuse marginal artery The right coronary artery Is dominant and has stents in the proximal to mid segment which are widely patent with minimal in-stent restenosis with excellent proximal distal transitioning The BANDA ventriculogram reveals Not performed The left ventricular end-diastolic pressure Not measured IMPRESSION Severe stenosis in a large first diagonal artery as described above with successful stenting reducing the lesion to 0% with 1 drug-eluting stent Persistent moderate to severe stenosis in the distal first diagonal artery which is not amenable to percutaneous stenting nor angioplasty Patent stents in the right coronary artery PLAN 1. Dual antiplatelet therapy 2. Maximize antianginal medications 3. Cardiac rehabilitation 4. LDL less than 55 to be achieved high intensity statin 5. Avoidance of tobacco products Electronically signed by : Manuel Prince MD 03/18/2024 10:55:46
[2024-03-18 09:11] LABS: Chloride 107 mmol/L (98-107)
[2024-03-18 09:12] LABS: Basophils # 0.1 K/mm3 (0-0.2); Basophils % 1.5 % (0.1-2.0); Eosinophils # 0.2 K/mm3 (0.0-0.4); Eosinophils % 2.6 % (0.1-12.0); Hematocrit 46.1 % (37.0-47.0); Hemoglobin 15.2 g/dL (12.2-16.2); Lymphocytes # 1.8 K/mm3 (0.7-4.5); Lymphocytes % 26.2 % (10-50); Mean Corpuscular Hemoglobin 30.2 pg (27.0-31.2); Mean Corpuscular Volume 91.4 fl (81-99); Mean Platelet Volume 7.3 fl (7.4-10.4); Monocytes # 0.3 K/mm3 (0.1-1.0); Monocytes % 4.5 % (1.7-9.3); Neutrophils # 4.4 K/mm3 (1.8-7.8); Neutrophils % 65.2 % (37.0-80.0); Platelet Count 266 K/mm3 (142-424); Potassium 3.5 mmoL/L (3.5-5.1); Red Blood Count 5.04 M/mm3 (4.20-5.40); Red Cell Distribution Width 13.7 % (11.5-17.5); Sodium 142 mmol/L (136-145); White Blood Count 6.8 K/mm3 (4.8-10.8)
[2024-03-18 09:15] LABS: Anion Gap 9.5 mEq/L (5-15); Blood Urea Nitrogen 8 mg/dl (7-17); Calcium 9.5 mg/dl (8.4-10.2); Carbon Dioxide 29 mmol/L (22.0-30.0); Creatinine Clearance Estimated 112 mL/min (50-200); Estimated Glomerular Filt Rate 74 ml/min (>60); GFR (African American) 90 ML/MIN (>60); Glucose 116 mg/dl (74-100)
[2024-03-18] MEDS: diphenhydrAMINE 50MG/ML VIAL 50 MG IV (10:13)
[2024-03-18] MEDS: FENTANYL 100MCG/2ML VIAL 50 MCG IV (10:13)
[2024-03-18] MEDS: 0.9 % SODIUM CHLORIDE 500 ML 25 ML IV (10:13)
[2024-03-18] MEDS: LIDOCAINE 1% 10ML MDV 20 ML IJ (10:13)
[2024-03-18] MEDS: MIDAZOLAM HCL 1MG/ML 5ML VIAL 1 MG IV (10:13)
[2024-03-18] MEDS: HEPARIN 1,000 UNITS/ML 10ML VIAL (CATH LAB) 10000 UNIT IV (10:13)
[2024-03-18] MEDS: VERAPAMIL 2.5MG/ML 2ML VIAL 2.5 MG IV (10:13)
[2024-03-18] MEDS: HEPARIN 1,000 UNITS/500ML NS (CATH LAB) 3000 UNIT IV (10:14)
[2024-03-18] MEDS: NITROGLYCERIN 800MCG/8ML SYR (CATH LAB) 800 MCG IA (10:14)
[2024-03-18] MEDS: IOPAMIDOL-370 (76%);100ML BOTTLE 105 ML IV (15:55)
[2024-03-18 16:02] LABS: CATHL Activated Clotting Time 384 SEC (74-125)
== END 2024-03-18 13:48 | disposition home or self-care (01) ==
PROVIDERS: Visit Provider Internal Medicine
DX: I25.118 Atherosclerotic heart disease of native coronary artery with other forms of angina pectoris (principal); I77.1 Stricture of artery; F17.210 Nicotine dependence, cigarettes, uncomplicated; Z79.899 Other long term (current) drug therapy; Z95.5 Presence of coronary angioplasty implant and graft; I25.2 Old myocardial infarction; J44.9 Chronic obstructive pulmonary disease, unspecified; I10 Essential (primary) hypertension; E78.5 Hyperlipidemia, unspecified
CPT/HCPCS: 80048; 85025; 85347; 92928; 93458; 99152; C1725; C1769; C1874; C9600; J1200; J1644; J2250; J3010; Q9967

== ENCOUNTER 2024-03-26 09:29 | Outpatient (CLI) | payer MEDICAID, SELFPAY ==
[2024-03-26 10:28] LABS: Basophils # 0.1 K/mm3 (0-0.2); Basophils % 1.6 % (0.1-2.0); Eosinophils # 0.2 K/mm3 (0.0-0.4); Eosinophils % 3.1 % (0.1-12.0); Hemoglobin 14.8 g/dL (12.2-16.2); Lymphocytes # 2.2 K/mm3 (0.7-4.5); Lymphocytes % 27.6 % (10-50); Mean Corpuscular HGB Conc 32.2 g/dL (31.8-35.4); Mean Corpuscular Volume 93.1 fl (81-99); Mean Platelet Volume 7.5 fl (7.4-10.4); Monocytes # 0.5 K/mm3 (0.1-1.0); Monocytes % 5.7 % (1.7-9.3); Neutrophils # 4.9 K/mm3 (1.8-7.8); Neutrophils % 62.1 % (37.0-80.0); Platelet Count 295 K/mm3 (142-424); Red Blood Count 4.95 M/mm3 (4.20-5.40); Red Cell Distribution Width 13.4 % (11.5-17.5); White Blood Count 7.9 K/mm3 (4.8-10.8)
[2024-03-26 10:31] LABS: Anion Gap 9.3 mEq/L (5-15); Blood Urea Nitrogen 19 mg/dl (7-17); Calcium 9.7 mg/dl (8.4-10.2); Carbon Dioxide 31 mmol/L (22.0-30.0); Chloride 105 mmol/L (98-107); Estimated Glomerular Filt Rate 65 ml/min (>60); GFR (African American) 79 ML/MIN (>60); Glucose 93 mg/dl (74-100); Potassium 4.3 mmoL/L (3.5-5.1); Sodium 141 mmol/L (136-145)
== END 2024-03-26 23:59 | disposition home or self-care (01) ==
LOC: LAB 09:30
PROVIDERS: PCP Family Medicine; Visit Provider Internal Medicine
DX: I25.10 Atherosclerotic heart disease of native coronary artery without angina pectoris (principal)
CPT/HCPCS: 36415; 80048; 85025

== ENCOUNTER 2024-12-25 21:27 | Inpatient (IN) | payer MEDICAID, SELFPAY ==
--- OUTSIDE RECORDS SUMMARY | 2024-12-25 21:59 | XMS_ITS | Clinical Summary ---
Author Organization [facility] Address [address] [place] [address] Care Team Providers Care Relay Motorman Name Role Phone Rushing, Neelam DIRECTOR OF MANAGED CARE Primary Care Provider [phone] Allergies Active Allergy Reactions Criticality Noted Date Comments Sulfamethoxazole-Trimet hoprim Other (See Comments) 05/29/2018 Irritates psoriasis Levofloxacin Hives 05/29/2018 Sulfa Antibiotics Other (See Comments) 05/29/19 19 Irritates psoriasis Medications albuterol sulfate HFA 108 (90 Base) MCG/ACT inhaler Inhale 1-2 puffs Every 4 (Four) Hours As Needed for Wheezing. Active ipratropium-alb uterol (DUO-NEB) 0.5-2.5 mg/3 ml nebulizer Take 3 mL by nebulization Every 4 (Four) Hours As Needed for Wheezing. Active cefuroxime (CEFTIN) 500 MG tablet Take 1 tablet by mouth 2 (Two) Times a Day. 8 tablet 05/30/2018 12:24 PM EST 9 Active Active Problems Problem Noted Date Diagnosed Date Pneumonia of right lower lobe due to infectious organism 05/29/2018 Hyperglycemia 05/29/2018 Tobacco abuse 05/29/2018 Bronchospasm 05/29/2018 Hx of unilateral nephrectomy 05/29/2018 Overview (05/29/2018): Right Leukocytosis 05/29/2018 Overview (05/29/2018): With recent steroid use Hypokalemia 05/29/2018 Family History Medical History Relation Name Comments COPD Brother Cancer Father COPD Mother COPD Sister Relation Name Status Comments Brother Alive Father Mother Alive Sister Alive Social History Tobacco Use Types Packs/Day Years Used Date Smoking Tobacco: Every Day Cigarettes Smokeless Tobacco: Never Alcohol Use Standard Drinks/Week Comments No 0 (1 standard drink = 0.6 oz pur e alcohol) AUDIT-C Answer Date Recorded Frequency of Alcohol Consumption Never 05/29/2018 Average Number of Drinks Not on file 019 Frequency of Binge Drinking Not on file 05/16 Abuse Screen Answer Date Recorded Unsafe at Home or Work/School Not on file Feels Threatened by Someone? Not on file 12/2022 Does Anyone Keep You from Co ntacting Others or Doint Things Outside the Home? Not on file 01/21/2023 Physical Sign of Abuse Present Not on file 1 Housing Stability Answer Date Recorded Current Living Arrangements Not on file 12/2022 Potentially Unsafe Housing Conditions Not on carolyn e 01/21/2023 Family and Community Support Answer Larry e Recorded Help with Day-to-Day Activities Not on file 01/21/2023 Lonely or Isolated Not on file 01/21/2023 Employment Answer Date Recorded Do you want help finding or keeping work or a zulay b? Not on file 01/21/2023 Disabilities Answer Date Recorded Concentrating, Remembering, or Making Decisions Difficulty Not on file 01/21/2023 Doing Errands Independently Difficulty Not on fi le 01/21/2023 Education Answer Date Recorded Help with school or training? Not on file Preferred Language Not on file 01/21/2023 Comments No Sex and Gender Information Value Date Recorded Sex Assigned at Not on file Legal Sex Female 12:39 PM EDT Gender Identity Not on file Sexual Orientation Not on file Last Filed Vital Signs Vital Sign Reading Time Taken Comments Blood Pressure 139/95 05/30/2018 11:09 AM EST Pulse 96 05/30/2018 11:47 AM EST Temperature 36.8 C (98.2 F) 05/30/2018 11:09 AM EST Respiratory Rate 20 05/30/2018 11:09 AM EST Oxygen Saturation 92% 05/30/2018 11:09 AM EST Inhaled Oxygen Concentration - - Weight 80.3 kg (177 lb) 05/29/2018 10:49 AM EST Height 170.2 cm (5' 7 ) 05/29/2018 10:49 AM EST Body Mass Index 27.72 05/29/2018 10:49 AM EST Plan of Treatment Health Maintenance Due Date Last Done Comments ANNUAL PHYSICAL 1968 Annual Gynecologic Pelvic and Breast Exam 1968 HEPATITIS C SCREENING 1968 TDAP/TD VACCINES (1 - Tdap) 12/03/1987 MAMMOGRAM 2008 COLOGUARD 2013 COLON CANCER SCREENING 5 YEAR SIGMOIDOSCOPY 2013 COLONOSCOPY [address] CANCER SCREENING [address] COLONOGRAPHY 2013 FECAL OCCULT BLOOD TEST 2013 FIT Testing (1 year) 2013 Pneumococcal Vaccine 50+ (1 of 1 - PCV) 2018 ZOSTER VACCINE (1 of 2) 2018 COVID-19 Vaccine (1 - season) 2024 INFLUENZA VACCINE 01/13/2025 HEMOGLOBIN A1C Discontinued 05/29/2018 Procedures Procedure Name Priority Date/Time Associated Diagnosis Comments HEMOGLOBIN A1C STAT 05/29/2018 11:02 AM EST from Last 3 Months or Most Recently Relevant to Health Maintenance Results * (ABNORMAL) Hemoglobin A1c (05/29/2018 11:02 AM EST) Hemoglobin A1C 6.00(H) 4.80 - 5.60 % 05/29/2018 5:06 PM EST [facility] Blood Line / Unknown 05/29/2018 11 :02 AM EST 05/29/2018 3:12 PM EST Narrative [facility] - 05/29/2018 5:06 PM EST The [place] recommends maintenance of Hemoglobin A1C at 7.0% or lower. Goals for Hemoglobin A1C reduction may need to be modified if hypoglycemia is a problem. us Javier Ybarra MD LAB BLOOD ORDERABLES Final Result [facility]
[address] [place] [address], from Last 3 Months or Most Recently Relevant to Health Maintenance Insurance [employer] [facility] Advance Directives * CPR (Attempt to Resuscitate) (Latest Code Status on File) Date Activated Date Inactivated Comments 05/29/2018 4:15 PM 05/30/2018 3:15 PM Question Answer Comments Code Status (Patient has no pulse and is not breathing): CPR (Attempt to Resuscitate) Medical Interventions (Patie nt has pulse or is breathing): Full Care Teams Relay Motorman Relationship Specialty Start Date End Date Neelam Rushing APRN [address] [place] [address] PCP - General Nurse Practitioner 05/29/18
[2024-12-25 22:09] VITALS: BP 134/78; PULSE 92; RESP 17; TEMP 36.6; O2SAT 95; BMI 28.7
[2024-12-25 22:28] LABS: Coronavirus 19, PCR Not Detected (NotDetected); Influenza A, PCR Not Detected (NotDetected); Influenza B, PCR Not Detected (NotDetected)
[2024-12-25 22:40] VITALS: O2SAT 96
[2024-12-25 22:41] VITALS: BP 122/78; PULSE 78; RESP 18; O2SAT 96
[2024-12-25 22:56] LABS: Hematocrit 43.3 % (37.0-47.0); Hemoglobin 13.4 g/dL (12.2-16.2); Immature Granulocytes % 0.2 %; Mean Corpuscular HGB Conc 30.9 g/dL (31.8-35.4); Mean Corpuscular Hemoglobin 28.0 pg (27.0-31.2); Mean Corpuscular Volume 90.6 fl (81-99); Nucleated Red Blood Cells % 0 %; Platelet Count 215 K/mm3 (142-424); Red Blood Count 4.78 M/mm3 (4.20-5.40); Red Cell Distribution Width-SD 49.7 fL; White Blood Count 5.5 K/mm3 (4.8-10.8)
--- NOTE | 2024-12-25 23:00 | XR_ITS ---
PROCEDURE INFORMATION: Exam: XR Chest Exam date and time: 12/25/2024 11:55 PM Age: 54 years old Clinical indication: Pain; Chest pressure; Additional info: Chest pain TECHNIQUE: Imaging protocol: Radiologic exam of the chest. Views: 1 view. COMPARISON: CR XR CHEST PORTABLE 03/26/2022 9:03 AM FINDINGS: Lungs: Unremarkable. No consolidation. Mild discoid atelectasis right costophrenic angle. Pleural spaces: Unremarkable. No pleural effusion. No pneumothorax. Heart/Mediastinum: Unremarkable. No cardiomegaly. Bones/joints: Unremarkable. IMPRESSION: Stable chest x-ray with no acute disease.
[2024-12-25 23:01] LABS: Alanine Aminotransferase 18 U/L (12-78); Albumin Level 3.8 g/dl (3.5-5.0); Albumin/Globulin Ratio 1.4 (1.1-1.8); Alkaline Phosphatase 122 U/L (38-126); Anion Gap 9.6 mEq/L (5-15); Aspartate Amino Transferase 28 U/L (14-36); Bilirubin,Total 0.5 mg/dl (0.2-1.3); Blood Urea Nitrogen 21 mg/dl (7-17); Calcium 8.4 mg/dl (8.4-10.2); Carbon Dioxide 29 mmol/L (22.0-30.0); Chloride 98 mmol/L (98-107); Creatinine Clearance Estimated 80 mL/min (50-200); Creatinine,Serum 1.00 mg/dl (0.52-1.04); Estimated Glomerular Filt Rate 57 ml/min (>60); GFR (African American) 69 ML/MIN (>60); Globulin 2.8 g/dL (1.3-3.2); Glucose 90 mg/dl (74-100); Potassium 4.6 mmoL/L (3.5-5.1); Sodium 132 mmol/L (136-145); Total Protein,Serum 6.6 g/dl (6.3-8.2)
[2024-12-25 23:10] LABS: Lactate Venous 1.7 mmol/L (0.4-2.0); VBG HCO3 24.8 mmol/L (23-30); VBG PH 7.24 mmol/L (7.31-7.41); VBG PO2 78.1 mmol/L (28-40)
[2024-12-25] MEDS: ASPIRIN 325MG TABLET 325 MG PO (23:10)
[2024-12-25 23:14] LABS: VBG PCO2 58.9 mmol/L (35-51)
[2024-12-25 23:21] LABS: Lipase 25 U/L (23-300)
--- NOTE | 2024-12-25 23:21 | ECG_ITS ---
APPROVED REPORT Exam: Resting ECG HR:88 bpm ECG Measurements Heart Rate 88 AXES NE 212 P 55 QRSd 79 QRS -16 QT 367 T 63 QTc 413 Conclusion SINUS RHYTHM WITH FIRST DEGREE AV BLOCK No STEMI Electronically signed by : MARIANA MONROE, 12/26/2024 07:08:13
[2024-12-25] MEDS: METHYLPREDNISOLONE SOD SUCC 125MG VIAL 125 MG IV (23:26)
--- NOTE | 2024-12-25 23:30 | PC.NURSE ---
Respiratory at bedside.
[2024-12-25 23:35] VITALS: RESP 20; O2SAT 96
[2024-12-25 23:39] LABS: Troponin I < 0.01 ng/ml (0.00-0.034)
[2024-12-25 23:43] LABS: NT Pro Brain Natriuretic Pep. 65.7 pg/mL (0-125)
[2024-12-26] VITALS (19 sets, daily range): BP systolic 99–157; BP diastolic 54–83; PULSE 69–92; RESP 0–24; TEMP 36.5–37; O2SAT 90–98; BMI 28.0; BMI 28.1
--- NOTE | 2024-12-26 02:09 | ED_ITS ---
Discharge Plan Disposition Patient Disposition: Admitted Condition: Fair Clinical Impressions Clinical Impression: Acute exacerbation of chronic obstructive pulmonary disease, Acute hypercapnic respiratory failure, CO2 narcosis Discharge ED Provider: Asim Regan General Chief Complaint: Shortness of Breath/Dyspnea Stated Complaint: SOA,swelling in extrimites , yellow tongue Time Seen by Provider: 12/25/24 22:23 Mode of Arrival: Wheelchair Description of Symptoms (Recalled from ER Triage Doc. by RN): patient states around 1400 today she began to have shortness of breath, states she aso notes upper extremity swelling. Patiet denies chest pain. Patient does have redness all over her body, states it is just a flare up of her psoriasis, states it has been that bad for 3 months now. History of Present Illness HPI narrative: This is a 54-year-old female patient, with past medical history of hypertension, hyperlipidemia, first-degree AV block, coronary artery disease status post stenting, COPD, and significant psoriasis, who is presented to the emergency department today for evaluation of multiple complaints. Patient presents with her sister who helps to serve as primary historian. She states that over the last couple of days the patient has become more edematous in her lower extremities and this evening she developed noisy and erratic breathing. After several hours of noticing this she began to notice that her sister was more lethargic than usual. She states that this is of course in the setting of taking half of a pill of Xanax this evening. The patient tells me that she has experienced some chest pain and shortness of breath but has not experienced any infectious symptoms. Related Data Home Medications ?Medication ?Instructions ?Recorded ?Confirmed triamcinolone acetonide 0.5 % applic topical 01/23/24 03/26/24 topical cream Previous Rx's ?Medication ?Instructions ?Recorded albuterol sulfate 90 mcg/actuation See Rx Instructions .Route 02/15/23 aerosol inhaler (Ventolin HFA) .COMPLEX #18 grams budesonide-formoterol HFA 160 See Rx Instructions .Rou te 02/15/23 mcg-4.5 mcg/actuation aerosol .COMPLEX #10.2 grams inhaler (Symbicort) ipratropium 0.5 mg-albuterol 3 mg 3 ml inhalation QID Shortness Of 02/15/23 (2.5 mg base)/3 mL nebulization Breath 30 days #180 mL soln lactulose 20 gram/30 mL oral 20 g (30 mL) PO DAILY #90 0 mL 02/15/23 solution polyethylene glycol 3350 17 See Rx Instructions .Route 01/20/24 gram/dose oral powder .COMPLEX #510 grams clopidogrel 75 mg tablet 75 mg PO DAILY #90 tabs 01/13 nitroglycerin 0.4 mg sublingual See Rx Instructions .R oute 06/08/24 tablet .COMPLEX #25 ea pantoprazole 40 mg tablet,delayed See Rx Instructions .Route 06/08/24 release .COMPLEX #90 tabs aspirin 81 mg chewable tablet 81 mg PO DAILY #90 ea metoprolol succinate 25 mg 25 mg PO DAILY 90 days #90 tabs 09/04/24 tablet,extended release 24 hr (Toprol XL) valsartan 160 mg tablet (Diovan) 160 mg PO DAILY #90 t abs 09/04/24 atorvastatin 40 mg tablet 40 mg PO DAILY #90 tabs 11/14 09/06 ranolazine 500 mg tablet,extended 500 mg PO BID #60 ta bs 12/07/24 release,12 hr Allergies Allergy/AdvReac Type Severity Reaction Status Date / Time escitalopram (From Lexapro) Allergy Mild Vomiting Verified 03/26/24 10:06 sertraline (From Zoloft) Allergy Mild Vomiting Verified 03/26/24 10:06 Anesthetic, Local Allergy Unknown Uncoded 03/26/24 10:06 Codeine Allergy Unknown Uncoded 03/26/24 10:06 From Procaine HCl Allergy Unknown Uncoded 03/26/24 10:06 Levofloxacin Allergy Unknown Uncoded 03/26/24 10:06 Quinolone Allergy Unknown Uncoded 03/26/24 10:06 [facility] Disclaimer: The information contained in this section may have been updated after the patient was seen, as this information can be updated by other users. Medical History Hyperlipidemia Tobacco use Dyspnea 1st degree AV block CAD (coronary atherosclerotic disease) Non-ST elevation [place] (NSTEMI) Acute carpal tunnel syndrome Angina pectoris Depression COPD (chronic obstructive pulmonary disease) Cancer Anxiety Psoriasis Surgical History History of cardiac cath History of kidney removal Hx of hysterectomy, total History of kidney surgery Family History Other Cancer Hypertension Social History Smoking Status: Current every day smoker tobacco type: cigarettes packs per day: 1 alcohol intake: never substance use type: denies use current occupational status: unemployed Travel in the last 8 weeks?: Inside the [place] Have you lived/traveled outside US in past 30 days?: No Contact w/someone who lives/traveled outside US past 30 days?: No Exposure to someone with infectious disease in past 14 days?: No Do you have a fever (greater than 100.4 F or 38 C)?: No Have you tested positive for COVID-19?: No Exposed to someone with COVID-19 in past 14 days?: No Do you have a sore throat?: No Do you have a cough?: No Do you have any weakness?: No Do you have any diarrhea?: No Are you experiencing any unusual bleeding?: No Do you have any muscle aches/pain?: No Do you have any abdominal pain?: No Are you experiencing loss of taste or smell?: No Other Medical History Have you received the Flu Vaccine for this season: No Have you received the Pneumonia Vaccine: Yes ROS Obtained: Yes Systems reviewed as appropriate & no additional complaints except as documented Physical Exam General General appearance: other (See MDM) Respiratory Respiratory exam: Present other (See MDM) Cardiovascular Cardiovascular exam: Present other (See MDM) Neurological Exam Neurological exam: Present other (See MDM) HEART Score HEART Score HEART Score assessment performed?: Yes History (anamnesis): Slightly suspicious ECG: Normal Age: 45-65 years Risk factors: 3 or more risk factors Troponin: </= normal limit HEART Score: 3 Critical Care Critical Care Time Critical Care Time: Yes Attestation: On 12/25/24, the high probability of a clinically significant, sudden or life threatening deterioration of the following system(s) required my full and direct attention, intervention and personal management. The time I documented below is in addition to time spent performing reported procedures but includes the following listed in this critical care notation. Total Time Total Critical Care Time: 95 Medical Decision Making Medical Records Medical records reviewed: Yes I reviewed the patient's medical records. Rajiv Inquiry Pt receiving controlled substance: No Rajiv was queried for this patient: No Vital Signs Vital Signs: 12/25/24 22:09 12/25/24 22:40 12/25/24 22:41 Temperature 97.9 F Temperature Source Oral Pulse Rate 78 Pulse Rate [Left] 92 H Respiratory Rate 17 18 Blood Pressure 122/78 Blood Pressure [Left Arm] 134/78 Blood Pressure Mean [Left Arm] 96 Blood Pressure Source [Left Arm] Automatic Cuff 02 Sat by Pulse Oximetry 95 96 96 Oxygen Delivery Method Nasal Cannula Nasal Cannula Oxygen Flow Rate (LPM) 3 3 Fraction of Inspired Oxygen 12/25/24 23:35 12/25/24 23:35 12/26/24 02:30 Temperature Temperature Source Pulse Rate Pulse Rate [Left] Respiratory Rate Blood Pressure Blood Pressure [Left Arm] Blood Pressure Mean [Left Arm] Blood Pressure Source [Left Arm] 02 Sat by Pulse Oximetry 96 Oxygen Delivery Method BiPAP Oxygen Flow Rate (LPM) Fraction of Inspired Oxygen 21 21 30 Lab Data Labs: Lab Results 12/25/24 22:10: SARS-CoV-2 (PCR) Not detected, Influenza A Untype (PCR) Not detected, Influenza Type B (PCR) Not detected 12/25/24 22:30: Troponin I < 0.01, Lipase 25, Plasma/Serum Alcohol < 10 12/25/24 22:36: WBC 5.5, RBC 4.78, Hgb 13.4, Hct 43.3, MCV 90.6, MCH 28.0, MCHC 30.9 L, RDW 14.9, Plt Count 215, MPV 10.3, Neut % (Auto) 70.6, Lymph % (Auto) 17.0, [place] % (Auto) 8.8, Eos % (Auto) 2.3, Baso % (Auto) 1.1, Neut # (Auto) 3.9, Lymph # (Auto) 0.9, [place] # (Auto) 0.5, Eos # (Auto) 0.1, Baso # (Auto) 0.1, S odium 132 L, Potassium 4.6, Chloride 98, Carbon Dioxide 29, Anion Gap 9.6, BUN 21 H, Creatinine 1.00, Estimated Creat Clear 80, Estimated GFR 57 L, Est GFR ( Amer) 69, Glucose 90, Calcium 8.4, Total Bilirubin 0.5, AST 28, ALT 18, Alkaline Phosphatase 122, NT-Pro-B Natriuret Pep 65.7, Total Protein 6.6, Albumin 3.8, Globulin 2.8, Albumin/Globulin Ratio 1.4 12/25/24 22:41: VBG pH 7.24 L, VBG pCO2 58.9 H, VBG pO2 78.1 H, VBG HCO3 24.8, VBG Total CO2 26.6, VBG O2 Saturation 94.4 H, VBG Base Excess -2.6 L, VBG Lactic Acid 1.7 12/26/24 02:34: VBG pH 7.30 L, VBG pCO2 49.1, VBG pO2 75.8 H, VBG HCO3 23.6, VBG Total CO2 25.1, VBG O2 Saturation 94.8 H, VBG Base Excess -2.8 L, VBG Lactic Acid 1.3 12/25/24 22:36 12/25/24 22:36 Response Orders (Tests/Meds): ED MEDICATIONS Generic Name Dose Route Start Last Admin Trade Name Freq PRN Reason Stop Dose Admin Acetaminophen 650 mg 12/26/24 02:53 Acetaminophen 325mg Tab PO 01/25/25 02:52 Q4HP PRN Fever or Mild Pain (1-3) Albuterol/Ipratropium 3 ml 12/26/24 06:00 Ipratropium/Albuterol 3 Ml [facility] 01/25/25 05:59 Q6RT [facility] Methylprednisolone Sodium Succinate 40 mg 12/26/24 03:00 Methylprednisolone Sod Succ 40mg Vial IV 01/25/25 02:59 Q12H BARRY Ondansetron HCl 4 mg 12/26/24 02:53 Ondansetron 4mg/2ml Vial IV 01/25/25 02:52 Q8HP PRN Nausea Discontinued Medications Generic Name Dose Route Start Last Admin Trade Name Freq PRN Reason Stop Dose Admin Albuterol/Ipratropium 9 ml 12/25/24 23:19 Ipratropium/Albuterol 3 Ml [facility] 12/25/24 23:20 ONCE ONE Aspirin 325 mg 12/25/24 23:04 12/25/24 23:10 Aspirin 325mg Tablet PO 12/25/24 23:05 325 mg ONCE ONE Administration Methylprednisolone Sodium Succinate 125 mg 12/25/24 23:19 12/25/24 23:26 Methylprednisolone Sod Succ 125mg Vial IV 12/25/24 23:20 125 mg ONCE ONE Administration ORDERS Category Date Time Status CXR --portable [XR chest portable] Stat Exams 12/25/24 23:00 Completed POCUS Point of Care (ER Only) Stat Exams 12/25/24 23:29 Completed BNP [NT Pro Brain Natriuretic Pep.] Stat Lab 12/25/24 22:36 Completed CMP [Comprehensive Metabolic Panel] Stat Lab 12/25/24 22:36 Completed Complete Blood Count Auto Diff Stat Lab 12/25/24 22:36 Completed Ethanol [Ethyl Alcohol] Stat Lab 12/25/24 22:30 Completed Lipase Stat Lab 12/25/24 22:30 Completed Rapid PCR Covid and Flu A/B Stat Lab 12/25/24 22:10 Completed Troponin I Q3H Lab 12/26/24 02:00 Ordered Troponin I Q3H Lab 12/26/24 05:00 Ordered Troponin I Stat Lab 12/25/24 22:30 Completed UDS [Drug Screen,Urine] Stat Lab 12/25/24 23:00 Ordered VBG [Venous Blood Gas] Stat RT 12/26/24 02:34 Completed Venous Blood Gas Stat RT 12/25/24 22:41 Completed ECG Data Tracing #1: Attestation: I reviewed this ECG and interpreted as documented below: ECG Narrative: EKG personally interpreted by me demonstrates normal sinus rhythm with a rate of 88 bpm, borderline left axis, WI prolongation consistent with first-degree AV block, no QTc prolongation. No ST elevation or depression. No overt signs of ischemia or arrhythmia. MDM Narrative Medical Decision Narrative: In summary, this is a 54-year-old female patient who is presenting to the emergency department today for evaluation of lethargy, erratic breathing, and lower extremity edema. Comorbidities include a past medical history of COPD on 2 L at baseline, hypertension, hyperlipidemia, and coronary artery disease. On initial evaluation of the patient she appeared lethargic and was falling asleep in the middle of her sentences. While awake, she appeared to be neurologically intact otherwise. She was hemodynamically stable, saturating well on her baseline of 2 L. On physical examination she was not moving air well bilaterally. She had significantly diminished breath sounds. No wheezing was appreciated. She does have trace lower extremity edema noted. She does have diffuse scaling erythema on her body consistent with her reported history of psoriasis. Differential diagnose includes ACS/ND, COPD exacerbation, pulmonary edema, heart failure/ovation, among others. Initial workup included hematologic labs as well as a chest x-ray. Hematologic labs resulted and were personally interpreted by me and demonstrate hypercapnia with an acidosis of 7.24. This seems to be respiratory driven. Otherwise, she has no leukocytosis or actionable anemia. No significant electrolyte derangement or evidence of acute kidney injury. Troponin is less than 0.01. Viral swabs are negative. Given these findings of respiratory acidosis with hypercapnia I felt that her presentation was most consistent with a COPD exacerbation. I have administered 3 DuoNebs as well as 125 mg of Solu-Medrol. On repeat reassessment after DuoNebs the patient is profoundly wheezing. My suspicion is that she was so tight initially that I was not appreciating much in the way of air movement to be perceived as wheezing. Given that she is experiencing lethargy associated with this acidosis and hypercapnia, I felt that her mental status changes were likely due to CO2 narcosis. Therefore we initiated the patient on BiPAP. The patient was monitored on continuous oximetry and telemetry throughout this time. After 2 hours on BiPAP I did obtain a repeat gas which showed improvement of her pCO2 from 58.9 to 49.1 as well as an improvement of her pH from 7.24 to 7.3. Chest x-ray was personally turbid by me and demonstrates no lobar consolidation or pleural effusion. Official radiology read is in agreement and states that there is no acute abnormality. Given that this patient is experiencing hypercapnic respiratory failure necessitating BiPAP I did have an interactive discussion with the hospitalist service who has agreed to evaluate the patient the emergency department. After our discussion and their evaluation they have agreed to admit the patient to their service and accept primary responsibility of the patient moving forward.
[2024-12-26 02:38] LABS: Lactate Venous 1.3 mmol/L (0.4-2.0); VBG HCO3 23.6 mmol/L (23-30); VBG PCO2 49.1 mmol/L (35-51); VBG PH 7.30 mmol/L (7.31-7.41); VBG PO2 75.8 mmol/L (28-40)
--- NOTE | 2024-12-26 03:17 | P.HP_ITS ---
<Statement entered by Juan Grossman MD - 12/28/24 12:07> Personally evaluated patient and agree with the plan of care as outlined by the [facility]. History of Present Illness *Admission Date: 12/26/24 *Reason for visit:: Lethargy *History of present illness: This is a 54-year-old female with a past medical history of COPD, hypertension, CAD with stenting hyperlipidemia, tobacco abuse, systemic psoriasis, obesity who presents emergency department today with complaints of increased lethargy and lower extremity edema. Sister provided collateral and states that she has noticed her sister being more lethargic with erratic breathing. Patient does admit to taking a Xanax this evening and states that she does not usually take Xanax significantly at baseline. She denies fever, cough, congestion. Denies chest pain. Emergency department workup notable for hypercapnic respiratory failure with CO2 of 58, pH 7.24. She did have increased work of breathing upon arrival with diminished air movement throughout lungs. She received DuoNeb x 3 with Solu- Medrol and placed on BiPAP. She did have mild improvement in respiratory status. Given her hypercapnia and COPD exacerbation she is admitted for further evaluation. [facility] Disclaimer: The information contained in this section may have been updated after the patient was seen, as this information can be updated by other users. Medical History Hyperlipidemia Tobacco use Dyspnea 1st degree AV block CAD (coronary atherosclerotic disease) Non-ST elevation [place] (NSTEMI) Acute carpal tunnel syndrome Angina pectoris Depression COPD (chronic obstructive pulmonary disease) Cancer Anxiety Psoriasis Surgical History History of cardiac cath History of kidney removal Hx of hysterectomy, total History of kidney surgery Family History Other Cancer Hypertension Social History Smoking Status: Current every day smoker tobacco type: cigarettes packs per day: 1 alcohol intake: never substance use type: denies use current occupational status: unemployed Travel in the last 8 weeks?: Inside the [place] Have you lived/traveled outside US in past 30 days?: No Contact w/someone who lives/traveled outside [place] past 30 days?: No Exposure to someone with infectious disease in past 14 days?: No Do you have a fever (greater than 100.4 F or 38 C)?: No Have you tested positive for COVID-19?: No Exposed to someone with COVID-19 in past 14 days?: No Do you have a sore throat?: No Do you have a cough?: No Do you have any weakness?: No Do you have any diarrhea?: No Are you experiencing any unusual bleeding?: No Do you have any muscle aches/pain?: No Do you have any abdominal pain?: No Are you experiencing loss of taste or smell?: No Other Medical History Have you received the Flu Vaccine for this season: No Have you received the Pneumonia Vaccine: Yes Review of Systems Review of Systems Review of systems:: pertinent systems reviewed and negative unless documented below Meds Home Medications and Allergies Home Medications ?Medication ?Instructions ?Recorded ?Confirmed ?Type albuterol sulfate 90 mcg/actuation See Rx Instructions .Route 02/15/23 03/26/24 Rx aerosol inhaler (Ventolin HFA) .COMPLEX #18 grams budesonide-formoterol HFA 160 See Rx Instructions .Rou te 02/15/23 03/26/24 Rx mcg-4.5 mcg/actuation aerosol .COMPLEX #10.2 grams inhaler (Symbicort) ipratropium 0.5 mg-albuterol 3 mg 3 ml inhalation QID Shortness Of 02/15/23 03/26/24 Rx (2.5 mg base)/3 mL nebulization Breath 30 days #180 mL soln lactulose 20 gram/30 mL oral 20 g (30 mL) PO DAILY #90 0 mL 02/15/23 03/26/24 Rx solution polyethylene glycol 3350 17 See Rx Instructions .Route 01/20/24 03/26/24 Rx gram/dose oral powder .COMPLEX #510 grams clopidogrel 75 mg tablet 75 mg PO DAILY #90 tabs 01/1303/26/24 Rx triamcinolone acetonide 0.5 % applic topical 01/23/24 03/26/24 History topical cream nitroglycerin 0.4 mg sublingual See Rx Instructions .R oute 06/08/24 Rx tablet .COMPLEX #25 ea pantoprazole 40 mg tablet,delayed See Rx Instructions .Route 06/08/24 Rx release .COMPLEX #90 tabs aspirin 81 mg chewable tablet 81 mg PO DAILY #90 ea Rx metoprolol succinate 25 mg 25 mg PO DAILY 90 days #90 tabs 09/04/24 Rx tablet,extended release 24 hr (Toprol XL) valsartan 160 mg tablet (Diovan) 160 mg PO DAILY #90 t abs 09/04/24 Rx atorvastatin 40 mg tablet 40 mg PO DAILY #90 tabs 11/14 09/06 Rx ranolazine 500 mg tablet,extended 500 mg PO BID #60 ta bs 12/07/24 Rx release,12 hr New Prescriptions to Start Prescriptions: Allergies Allergy/AdvReac Type Severity Reaction Status Date / Time escitalopram (From Lexapro) Allergy Mild Vomiting Verified 03/26/24 10:06 sertraline (From Zoloft) Allergy Mild Vomiting Verified 03/26/24 10:06 Anesthetic, Local Allergy Unknown Uncoded 03/26/24 10:06 Codeine Allergy Unknown Uncoded 03/26/24 10:06 From Procaine HCl Allergy Unknown Uncoded 03/26/24 10:06 Levofloxacin Allergy Unknown Uncoded 03/26/24 10:06 Quinolone Allergy Unknown Uncoded 03/26/24 10:06 Exam Data for Last 24 hours Vital signs and Labs for Last 24 Hours: Temp Pulse Resp BP Pulse Ox O2 Del Method O2 Flow Rate 97.9 F 78 18 122/78 96 BiPAP 3 12/25/24 22:09 12/25/24 22:41 12/25/24 22:41 12/25/24 22:41 12/25/24 23:35 12/25/24 23:35 12/25/24 22:41 FiO2 30 12/26/24 02:30 Laboratory Results - last 24 hr 12/25/24 22:10: SARS-CoV-2 (PCR) Not detected, Influenza A Untype (PCR) Not detected, Influenza Type B (PCR) Not detected 12/25/24 22:30: Troponin I < 0.01, Lipase 25, Plasma/Serum Alcohol < 10 12/25/24 22:36: WBC 5.5, RBC 4.78, Hgb 13.4, Hct 43.3, MCV 90.6, MCH 28.0, MCHC 30.9 L, RDW 14.9, Plt Count 215, MPV 10.3, Neut % (Auto) 70.6, Lymph % (Auto) 17.0, [place] % (Auto) 8.8, Eos % (Auto) 2.3, Baso % (Auto) 1.1, Neut # (Auto) 3.9, Lymph # (Auto) 0.9, [place] # (Auto) 0.5, Eos # (Auto) 0.1, Baso # (Auto) 0.1, Sodium 132 L, Potassium 4.6, Chloride 98, Carbon Dioxide 29, Anion Gap 9.6, BUN 21 H, Creatinine 1.00, Estimated Creat Clear 80, Estimated GFR 57 L, Est GFR ( Amer) 69, Glucose 90, Calcium 8.4, Total Bilirubin 0.5, AST 28, ALT 18, Alkaline Phosphatase 122, NT-Pro-B Natriuret Pep 65.7, Total Protein 6.6, Albumin 3.8, Globulin 2.8, Albumin/Globulin Ratio 1.4 12/25/24 22:41: VBG pH 7.24 L, VBG pCO2 58.9 H, VBG pO2 78.1 H, VBG HCO3 24.8, VBG Total CO2 26.6, VBG O2 Saturation 94.4 H, VBG Base Excess -2.6 L, VBG Lactic Acid 1.7 12/26/24 02:34: VBG pH 7.30 L, VBG pCO2 49.1, VBG pO2 75.8 H, VBG HCO3 23.6, VBG Total CO2 25.1, VBG O2 Saturation 94.8 H, VBG Base Excess -2.8 L, VBG Lactic Acid 1.3 I & O for Last 24 hours: Intake & Output 12/23/24 12/24/24 12/25/24 12/26/24 23:59 23:59 23:59 23:59 Weight 80.739 kg Constitutional Constitutional: no acute distress *Routine HEENT Exam Head: Present normocephalic Eye: Present EOMI and PERRL ENT: Present mucous membranes moist *Routine Neck Exam Neck: Present supple; Absent lymphadenopathy *Routine Respiratory Exam Respiratory: Present wheezes, diminished air movement and normal respiratory effort *Routine Cardiovascular Exam Cardiovascular: Present RRR *Routine Abdominal Exam Abdominal: Present soft and normoactive bowel sounds; Absent tenderness *Routine Rectal Exam Rectal:: deferred *Routine Genitalia Exam Genitalia:: deferred *Routine Extremities Exam Extremities: Absent cyanosis, clubbing or edema *Routine Skin Exam Skin: Present warm; Absent rash *Routine Neurological Exam Neurological: Present alert and oriented X3 Assessment and Plan *Assessment and plan (1) Acute hypercapnic respiratory failure: Status: Acute Category: Medical Code(s): J96.02 - Acute respiratory failure with hypercapnia (2) COPD exacerbation: Status: Acute Category: Medical Code(s): J44.1 - Chronic obstructive pulmonary disease with (acute) exacerbation (3) Hyperlipidemia: Status: Acute Qualifiers: Hyperlipidemia type: mixed hyperlipidemia Qualified Code(s): E78.2 - Mixed hyperlipidemia Category: Medical Code(s): E78.5 - Hyperlipidemia, unspecified (4) Tobacco use: Status: Acute Category: Social Hx Code(s): Z72.0 - Tobacco use (5) CAD (coronary atherosclerotic disease): Status: Acute Qualifiers: Coronary Disease-Associated Artery/Lesion type: elem artery [place] vs. transplanted heart: elem heart Associated angina: with other forms of angina Qualified Code(s): I25.118 - Atherosclerotic heart disease of elem coronary artery with other forms of angina pectoris Category: Medical Code(s): I25.10 - Atherosclerotic heart disease of elem coronary artery without angina pectoris Plan #Acute respiratory failure with hypercapnia #COPD exacerbation Initial pH of 7.24 with a CO2 of 58 with improvement to 7.3 and 2:48 hours of BiPAP Will continue BiPAP throughout the evening. Repeat VBG in a.m. Continue corticosteroids. Patient is on daily prednisone at home for psoriasis. Will continue Solu-Medrol 40 mg twice daily while inpatient Continue bronchodilators including DuoNeb Continue home Symbicort or therapeutic substitution #CAD No chest pain complaints at this time. EKG without ischemia. Continue aspirin and clopidogrel Continue home [place] #Hypertension Continue home antihypertensives once reconciled #Hyperlipidemia Continue home statin #Psoriasis Full body erythema noted. Patient is on daily prednisone as well as topical steroid creams. Reports this is getting worse over the last 3 months. Follows with [facility] #Tobacco abuse Tobacco cessation education #Obesity Gets all aspects of care
--- NOTE | 2024-12-26 03:29 | PC.NURSE ---
pt arrived to ICU from ED via stretcher at 0318.
[2024-12-26] MEDS: IPRATROPIUM/ALBUTEROL 3 ML NEB 9 ML IH (03:50)
[2024-12-26 03:52] LABS: Troponin I < 0.01 ng/ml (0.00-0.034)
[2024-12-26 04:10] LABS: Adenovirus,PCR Not Detected (NotDetected); Chlamydophila Pneumoniae, PCR Not Detected (NotDetected); Coronavirus 19, PCR Not Detected (NotDetected); Coronovirus HKU1,PCR Not Detected (NotDetected); Influenza A, PCR Not Detected (NotDetected); Influenza AH1, 2009 Not Detected (NotDetected); Influenza AH1, PCR Not Detected (NotDetected); Influenza AH3,PCR Not Detected (NotDetected); Influenza B, PCR Not Detected (NotDetected); Mycoplasma Pneumoniae, PCR Not Detected (NotDetected); Parainfluenza 1, PCR Not Detected (NotDetected); Parainfluenza 2, PCR Not Detected (NotDetected); Parainfluenza 3, PCR Not Detected (NotDetected); Parainfluenza 4, PCR Not Detected (NotDetected)
[2024-12-26] MEDS: METHYLPREDNISOLONE SOD SUCC 40MG VIAL 40 MG IV (04:21)
[2024-12-26 04:50] LABS: Ammonia 9 umol/L (9-30)
[2024-12-26 04:53] LABS: Amphetamine/Metha Screen,Urine Negative ng/ml (<1000)
[2024-12-26 04:54] LABS: Barbiturates Screen,Urine Negative ng/ml (<200)
[2024-12-26 04:55] LABS: Benzodiazepines Screen,Urine Positive ng/ml (<200)
[2024-12-26 04:56] LABS: Methadone Screen,Urine Positive ng/ml (<300)
[2024-12-26 04:57] LABS: Opiate Screen,Urine Positive ng/ml (<300)
[2024-12-26 04:58] LABS: Phencyclidine Screen,Urine Negative ng/ml (<25)
[2024-12-26] MEDS: IPRATROPIUM/ALBUTEROL 3 ML NEB IH (06:29)
[2024-12-26 06:36] LABS: Hematocrit 39.6 % (37.0-47.0); Hemoglobin 12.5 g/dL (12.2-16.2); Immature Granulocytes % 0.2 %; Mean Corpuscular HGB Conc 31.6 g/dL (31.8-35.4); Mean Corpuscular Hemoglobin 28.6 pg (27.0-31.2); Mean Corpuscular Volume 90.6 fl (81-99); Nucleated Red Blood Cells % 0 %; Platelet Count 145 K/mm3 (142-424); Red Blood Count 4.37 M/mm3 (4.20-5.40); Red Cell Distribution Width-SD 49.5 fL; White Blood Count 5.6 K/mm3 (4.8-10.8)
[2024-12-26 06:40] LABS: Lactate Venous 1.7 mmol/L (0.4-2.0); VBG HCO3 25.7 mmol/L (23-30); VBG PH 7.28 mmol/L (7.31-7.41); VBG PO2 89.3 mmol/L (28-40)
[2024-12-26 06:46] LABS: VBG PCO2 55.8 mmol/L (35-51)
--- NOTE | 2024-12-26 06:48 | PC.NURSE ---
vbg results called to Kareen Keen APRN.
--- NOTE | 2024-12-26 06:50 | PC.NURSE ---
Patient on the bipap. Respiratory to adjust settings on it. Patient is responsive if you say her name and will respond to you but in the middle of a sentence with doze off. Patients body is erythema and skin is peeling off and also has some blisters. Patient says its psorisis. Patient has audible wheezing and course crackles and expiratory rhonci. Patient uses bedside commode with standby assist.
[2024-12-26 07:02] LABS: Troponin I < 0.01 ng/ml (0.00-0.034)
--- OUTSIDE RECORDS SUMMARY | 2024-12-26 07:23 | XMS_ITS | Clinical Summary ---
Author Organization [facility] Address [address] [place] [address] Care Team Providers Care Trainmaster Name Role Phone Rushing, Neelam TRACK ANNOUNCER Primary Care Provider [phone] Allergies Active Allergy Reactions Criticality Noted Date [...] - 5.60 % 05/29/2018 5:06 PM EST [facility] Blood Line / Unknown 05/29/2018 11 :02 AM EST 05/29/2018 3:12 PM EST Narrative [facility] - 05/29/2018 5:06 PM EST The [place] [employer] recommends maintenance of Hemoglobin A1C at 7.0% or lower. Goals for Hemoglobin A1C reduction may need to be modified if hypoglycemia is a problem. us Javier Ybarra MD LAB BLOOD ORDERABLES Final Result [facility]
[address] [place] [address], from Last 3 Months or Most Recently Relevant to Health Maintenance [facility] Advance Directives * CPR (Attempt to Resuscitate) (Latest Code Status on File) Date Activated Date Inactivated Comments 05/29/2018 4:15 PM 05/30/2018 3:15 PM Question Answer Comments Code Status (Patient has no pulse and is not breathing): CPR (Attempt to Resuscitate) Medical Interventions (Patie nt has pulse or is breathing): Full Care Teams Trainmaster Relationship Specialty Start Date End Date Neelam Rushing APRN [address] [place] [address] PCP - General Nurse Practitioner 05/29/18
--- NOTE | 2024-12-26 07:40 | PC.NURSE ---
RESPIRATORY CARE NOTE: PER ZITA (HOSPITALIST) BIPAP SETTINGS WERE ADJUSTED TO ASSIST IN DECREASING CO2 LEVELS. INCREASED RESPIRATORY RATE TO 22 AT THIS TIME.
[2024-12-26 08:11] LABS: Anion Gap 12.5 mEq/L (5-15); Blood Urea Nitrogen 23 mg/dl (7-17); Calcium 8.2 mg/dl (8.4-10.2); Carbon Dioxide 27 mmol/L (22.0-30.0); Chloride 99 mmol/L (98-107); Creatinine Clearance Estimated 81 mL/min (50-200); Creatinine,Serum 1.00 mg/dl (0.52-1.04); Estimated Glomerular Filt Rate 57 ml/min (>60); GFR (African American) 69 ML/MIN (>60); Glucose 111 mg/dl (74-100); Potassium 5.5 mmoL/L (3.5-5.1); Sodium 133 mmol/L (136-145)
[2024-12-26] MEDS: AZITHROMYCIN 500 MG in 0.9 % SODIUM CHLORIDE 250 ML 250 MG IV (09:05)
[2024-12-26 09:11] LABS: VBG HCO3 37.6 mmol/L (23-30); VBG PCO2 49.7 mmol/L (35-51); VBG PH 7.50 mmol/L (7.31-7.41); VBG PO2 63.7 mmol/L (28-40)
--- NOTE | 2024-12-26 09:11 | HMH.PTEV ---
Physical Therapy Evaluation Rehab PT IP Evaluation Start: 12/26/24 04:15 Freq: ONCE Status: Active Protocol: Document 12/26/24 09:06 ACE (Rec: 12/26/24 09:11 ACE [id number]) Subjective/History History History Per H&P: This is a 54-year-old female with a past medical history of COPD, hypertension, CAD with stenting hyperlipidemia, tobacco abuse, systemic psoriasis, obesity who presents emergency department today with complaints of increased lethargy and lower extremity edema. Sister provided collateral and states that she has noticed her sister being more lethargic with erratic breathing. Patient does admit to taking a Xanax this evening and states that she does not usually take Xanax significantly at baseline. She denies fever, cough, congestion. Denies chest pain. Emergency department workup notable for hypercapnic respiratory failure with CO2 of 58, pH 7.24. She did have increased work of breathing upon arrival with diminished air movement throughout lungs. She received DuoNeb x 3 with Solu-Medrol and placed on BiPAP. She did have mild improvement in respiratory status. Given her hypercapnia and COPD exacerbation she is admitted for further evaluation. Subjective Subjective Pt reports she is usually IND with all mobility but does have some clumsiness Pt normally ambulates without and AD. Pt lives alone in a single-story home with 7 [address]. Pt reports she may be able to have someone stay with her if needed. New diagnosis of No cancer in past 12 months? [facility] How much help from another person do you currently need... Turning from your None back to your side while in a flat bed without using bedrails? Moving from lying on None back to sitting on the side of a flat bed without using bedrails? Moving to and from a A little bed to a chair ( including a wheelchair)? Standing up from a A little chair using your arms? (e.g., wheelchair, bedside chair) Walking in hospital A little room? Climbing 3-5 steps A little with a railing? Mobility Score 20 Mobility Level [place] You Mobility 6 Walk 10 steps or more Mobility Calculator Rehab PT IP Eval Objective Appearance Patient Behavior Appropriate,Cooperative Patient Orientation Person Difficulty following mild instructions Speech Pattern Clear Ambulation Patient Able to No Ambulate Balance Ability to Arise Able, uses arms to help Sitting Balance Steady, safe Standing Balance Unsteady Transfers Bed Transfer Ability Minimal x 1 (25% assist) Rehab PT IP prob,goals,plan Problems Date of Evaluation: 12/26/24 PT IP Problems Bed Mobility,Transfers,Gait,Balance,Self care,Safety Rehab Potential Rehab Potential Good Equipment Needs Assistive Devices Rolling / Wheeled Walker Plan PT Intervention Plan Bed Mobility,Transfers,Gait,Balance,Self care,Safety, Therapeutic Exercise Other Intervention 1-2 times Plan PT Plan Frequency Daily Duration LOS Discharge Goals Bed Transfer Ability Independent Sit to Stand Chair Independent Transfer Ability Ambulation Assistive Rolling Walker Device Ambulation Distance 10 (feet) Discharge Plan PT Discharge Plan Pt presents below baseline in strength, functional mobility, and endurance. Pt was able to demo bed mobility but was limited in mobility assessment d/t being on bipap. PT recommending inpatient rehab placement upon d/c to maximize safety and address deficits. Pt may be safe to return home with HH if she has 24/7 assistance or achieves her PT goals. Eval Complexity Eval Charge Codes 37983 - Moderate Complexity PHYSICIAN CERTIFICATION: I certify the specified therapy services for Snow Lopez are required, authorized, and reviewed every 30 days.
[2024-12-26 09:12] LABS: Lactate Venous 2.9 mmol/L (0.4-2.0)
--- NOTE | 2024-12-26 10:37 | HMH.PHAINT1 ---
Pharmacy Intervention Comments: MEDICATION RECONCILIATION COMPLETE USING EXTERNAL PHARMACY FILL HISTORY.
[2024-12-26 12:24] LABS: RBC Morphology Normal; Total Cells Counted 100
[2024-12-26 13:07] LABS: Reflex Lactic Add Lactic Reflex
--- NOTE | 2024-12-26 14:16 | PC.NURSE ---
left ICU with med surg staff to transfer to the floor
[2024-12-26 14:22] LABS: Lactic Acid Follow Up (RFLX 1) 1.6 mmol/L (0.7-2.1)
[2024-12-26] MEDS: CLOPIDOGREL 75MG TAB 75 MG PO (14:49)
--- NOTE | 2024-12-26 14:56 | PC.NURSE ---
patient arrived to floor at 0217 by wc from ICU.
[2024-12-26] MEDS: RANOLAZINE 500MG ER TABLET 500 MG PO (20:30)
[2024-12-26] MEDS: PANTOPRAZOLE 40MG TABLET 40 MG PO (20:30)
[2024-12-26] MEDS: CLOBETASOL PROP 0.05% TP (20:30)
[2024-12-26] MEDS: ATORVASTATIN 40MG TABLET 40 MG PO (20:30)
[2024-12-27] VITALS: BP 151/57; PULSE 86; RESP 14; TEMP 36.6; O2SAT 92
--- NOTE | 2024-12-27 03:55 | PC.NURSE ---
Patient is alert and oriented x4. She was observed to be resting in bed with eyes closed, respirations even and unlabored on room air, and no apparent distress throughout the majority of the night. Patient's skin was thoroughly assessed; a rash of scaly, flaky skin and redness was observed all over (documented history of psoriasis skin condition). Temovate 0.05% topical cream was applied for the affected areas. Patient describes her rash as uncomfortable and painful. Trace swelling also noted to upper/lower extremities. Other scheduled medications were administered per MAR. She has not had any other complaints, such as shortness of breath, dizziness, nausea, anxiousness, headaches, etc. this shift. Oxygen saturations > 90%. Patient ambulates independently in her room/to the bathroom without difficulties. Self-performed partial bath taken this shift. Tolerating a low sodium diet. Vital signs stable this morning. Lung sounds clear but diminished, bowel sounds hypoactive upon auscultation (no bowel movement yet). At this time, the patient is resting in bed with no new needs vocalized. Call light is within reach.
[2024-12-27 04:00] VITALS: BP 131/64; PULSE 77; RESP 14; TEMP 36.6; O2SAT 90; BMI 28.9
[2024-12-27 06:48] LABS: VBG HCO3 28.8 mmol/L (23-30); VBG PCO2 40.3 mmol/L (35-51); VBG PH 7.47 mmol/L (7.31-7.41); VBG PO2 90.7 mmol/L (28-40)
[2024-12-27 06:50] LABS: Lactate Venous 2.1 mmol/L (0.4-2.0)
[2024-12-27 06:55] VITALS: PULSE 63; O2SAT 91
[2024-12-27] MEDS: IPRATROPIUM/ALBUTEROL 3 ML NEB IH ×2 (06:55→11:49)
[2024-12-27] MEDS: BUDESONIDE 0.5MG/2ML NEB 0.5 MG IH (06:55)
[2024-12-27 07:43] LABS: Hematocrit 34.0 % (37.0-47.0); Hemoglobin 10.8 g/dL (12.2-16.2); Immature Granulocytes % 0.4 %; Mean Corpuscular HGB Conc 31.8 g/dL (31.8-35.4); Mean Corpuscular Hemoglobin 28.3 pg (27.0-31.2); Mean Corpuscular Volume 89.0 fl (81-99); Nucleated Red Blood Cells % 0 %; Platelet Count 149 K/mm3 (142-424); Red Blood Count 3.82 M/mm3 (4.20-5.40); Red Cell Distribution Width-SD 46.7 fL; White Blood Count 7.0 K/mm3 (4.8-10.8)
[2024-12-27 08:00] VITALS: BP 110/62; PULSE 72; RESP 16; TEMP 36.6; O2SAT 93
[2024-12-27 08:00] LABS: Alanine Aminotransferase 15 U/L (12-78); Albumin Level 3.0 g/dl (3.5-5.0); Albumin/Globulin Ratio 1.3 (1.1-1.8); Alkaline Phosphatase 106 U/L (38-126); Anion Gap 8.6 mEq/L (5-15); Aspartate Amino Transferase 23 U/L (14-36); Bilirubin,Total 0.3 mg/dl (0.2-1.3); Blood Urea Nitrogen 26 mg/dl (7-17); Calcium 8.3 mg/dl (8.4-10.2); Carbon Dioxide 30 mmol/L (22.0-30.0); Chloride 102 mmol/L (98-107); Creatinine Clearance Estimated 104 mL/min (50-200); Creatinine,Serum 0.80 mg/dl (0.52-1.04); Estimated Glomerular Filt Rate 74 ml/min (>60); GFR (African American) 90 ML/MIN (>60); Globulin 2.3 g/dL (1.3-3.2); Glucose 127 mg/dl (74-100); Potassium 4.6 mmoL/L (3.5-5.1); Sodium 136 mmol/L (136-145); Total Protein,Serum 5.3 g/dl (6.3-8.2)
[2024-12-27 08:06] LABS: C-Reactive Protein 24.0 mg/L (0-4)
[2024-12-27] MEDS: CLOPIDOGREL 75MG TAB 75 MG PO (08:33)
[2024-12-27] MEDS: ASPIRIN 81MG CHEWABLE TABLET 81 MG PO (08:33)
[2024-12-27] MEDS: METOPROLOL SUCCINATE XL 25MG TABLET 25 MG PO (08:33)
[2024-12-27] MEDS: RANOLAZINE 500MG ER TABLET 500 MG PO (08:33)
[2024-12-27] MEDS: CLOBETASOL PROP 0.05% TP (08:34)
[2024-12-27] MEDS: POLYETHYLENE GLYCOL 3350 17 GM PACKET PO (08:34)
[2024-12-27] MEDS: HYDROXYZINE HCL 10 MG/5 ML PO (08:35)
[2024-12-27] MEDS: METHYLPREDNISOLONE SOD SUCC 40MG VIAL 40 MG IV (08:59)
[2024-12-27] MEDS: AZITHROMYCIN 500 MG in 0.9 % SODIUM CHLORIDE 250 ML 250 MG IV (09:16)
[2024-12-27 10:49] LABS: Reflex Lactic Add Lactic Reflex
--- NOTE | 2024-12-27 10:49 | P.DS_ITS ---
General Admission date:: 12/26/24 HPI HPI HPI: This is a 54-year-old female with a past medical history of COPD, hypertension, CAD with stenting hyperlipidemia, tobacco abuse, systemic psoriasis, obesity who presents emergency department today with complaints of increased lethargy and lower extremity edema. Sister provided collateral and states that she has noticed her sister being more lethargic with erratic breathing. Patient does admit to taking a Xanax this evening and states that she does not usually take Xanax significantly at baseline. She denies fever, cough, congestion. Denies chest pain. Emergency department workup notable for hypercapnic respiratory failure with CO2 of 58, pH 7.24. She did have increased work of breathing upon arrival with diminished air movement throughout lungs. She received DuoNeb x 3 with Solu- Medrol and placed on BiPAP. She did have mild improvement in respiratory status. Given her hypercapnia and COPD exacerbation she is admitted for further evaluation. Hospital Course Hospital Course Hospital Course: Snow Lopez is a 54-year-old female who presented with shortness of breath and was admitted for COPD exacerbation. #Acute hypoxic, hypercapnic respiratory failure #Acute COPD exacerbation ? Presented with progressive shortness of breath, found to be hypercapnic with diffuse on VBG with diffuse restricted airway and was initiated on BiPAP in the ED. ? Patient states she has been on a steroid taper for her psoriasis flare in her lower extremities, finished a course of steroids about 3 days ago when a psoriasis flare unfortunately began in her upper extremities. During this course, she began to have increased work of breathing. ? Respiratory status clinically improved with DuoNebs, Pulmicort, steroids, azithromycin. Weaned to room air within a few hours after BiPAP therapy. ? No signs of infection, respiratory panel normal. ? Discharged with prednisone taper for concomitant psoriasis flare from 40 mg for 3 days, 30 mg for 3 days, 20 mg for 3 days, 10 mg for 3 days. See separate problem for psoriasis. ? Also discharged with azithromycin, Trelegy. Discontinued Symbicort. Will follow-up with pulmonology within 2 weeks. #Diffuse psoriasis flare ? Unfortunately, patient has been battling psoriasis for a long time. Recently finished course of steroids for psoriasis flare in lower extremities. Follows with dermatology. ? Upper extremity and torso psoriasis flare began after stopping steroid course 3 days ago. Likely from rebound. ? Considered starting methotrexate or cyclosporine; however, patient has solitary kidney (risk of nephrotoxicity) and thus we will avoid for now until follow-up with dermatology within 1 week. ? Discharged with prednisone taper as above. #CAD - No chest pain complaints at this time. EKG without ischemia. Continue aspirin and clopidogrel. - Continue home Ranexa, aspirin, clopidogrel, metoprolol. #Hypertension - Continue home valsartan, metoprolol. #Hyperlipidemia - Continue home statin #Tobacco abuse - Tobacco cessation education #Obesity - Gets all aspects of care Total time spent on discharge: 35 minutes on chart review, counseling, documentation, and direct care with patient. Exam Data for Last 24 hours Vital signs and Labs for Last 24 Hours: Temp Pulse Resp BP Pulse Ox O2 Del Method O2 Flow Rate 97.8 F 72 16 110/62 93 L Room Air 2 12/27/24 08:00 12/27/24 08:00 12/27/24 08:00 12/27/24 08:00 12/27/24 08:00 12/27/24 08:00 12/26/24 12:04 FiO2 30 12/26/24 09:44 Laboratory Results - last 24 hr 12/26/24 06:15: Total Counted 100, Neutrophils % (Manual) 96 H, Lymphocytes % (Manual) 3 L, Monocytes % (Manual) 1 L, Platelet Estimate Normal, RBC Morphology Normal 12/26/24 14:00: Lactate 1.6 12/27/24 06:30: WBC 7.0, RBC 3.82 L, Hgb 10.8 L, Hct 34.0 L, MCV 89.0, MCH 28.3, MCHC 31.8, RDW 14.6, Plt Count 149, MPV 10.8 H, Neut % (Auto) 79.1, Lymph % (Auto) 14.0, [place] % (Auto) 6.4, Eos % (Auto) 0.0 L, Baso % (Auto) 0.1, Neut # (Auto) 5.5, Lymph # (Auto) 1.0, [place] # (Auto) 0.5, Eos # (Auto) 0.0, Baso # (Auto) 0.0, VBG pH 7.47 H, VBG pCO2 40.3, VBG pO2 90.7 H, VBG HCO3 28.8, VBG Total CO2 30.0 H, VBG O2 Saturation 97.7 H, VBG Base Excess 5.2 H, VBG Lactic Acid 2.1 H, Sodium 136, Potassium 4.6, Chloride 102, Carbon Dioxide 30, Anion Gap 8.6, BUN 26 H, Creatinine 0.80, Estimated Creat Clear 104, Estimated GFR 74, Est GFR ( Amer) 90 D, Glucose 127 H, Calcium 8.3 L, Total Bilirubin 0.3, AST 23, ALT 15, Alkaline Phosphatase 106, C-Reactive Protein 24.0 H, Total Protein 5.3 L, Albumin 3.0 L D, Globulin 2.3, Albumin/Globulin Ratio 1.3 I & O for Last 24 hours: Intake & Output 12/24/24 12/25/24 12/26/24 12/27/24 23:59 23:59 23:59 23:59 Intake Total 765 / 965 200 / 200 Output Total 500 / 500 Balance 265 / 465 200 / 200 Weight 80.739 kg 81.363 kg 83.552 kg Constitutional Constitutional: no acute distress *Routine HEENT Exam Head: Present normocephalic Eye: Present EOMI and PERRL ENT: Present mucous membranes moist *Routine Neck Exam Neck: Present supple; Absent lymphadenopathy *Routine Respiratory Exam Respiratory: Present CTA bilaterally *Routine Cardiovascular Exam Cardiovascular: Present RRR *Routine Abdominal Exam Abdominal: Present soft and normoactive bowel sounds; Absent tenderness *Routine Extremities Exam Extremities: Absent cyanosis, clubbing or edema *Routine Skin Exam Skin: Present warm and rash Comments: Erythematous, scaly skin in upper extremities, torso, back. No signs of drainage. *Routine Neurological Exam Neurological: Present alert and oriented X3 Results Data Completed and Pending Labs on day of discharge: Labs from last 24 hours 12/27/24 12/26/24 12/26/24 06:30 14:00 06:15 WBC 7.0 RBC 3.82 L Hgb 10.8 L Hct 34.0 L MCV 89.0 MCH 28.3 MCHC 31.8 RDW 14.6 Plt Count 149 MPV 10.8 H Neut % (Auto) 79.1 Lymph % (Auto) 14.0 [place] % (Auto) 6.4 Eos % (Auto) 0.0 L Baso % (Auto) 0.1 Neut # (Auto) 5.5 Lymph # (Auto) 1.0 [place] # (Auto) 0.5 Eos # (Auto) 0.0 Baso # (Auto) 0.0 Total Counted 100 Neutrophils % (Manual) 96 H Lymphocytes % (Manual) 3 L Monocytes % (Manual) 1 L Platelet Estimate Normal RBC Morphology Normal VBG pH 7.47 H VBG pCO2 40.3 VBG pO2 90.7 H VBG HCO3 28.8 VBG Total CO2 30.0 H VBG O2 Saturation 97.7 H VBG Base Excess 5.2 H VBG Lactic Acid 2.1 H Sodium 136 Potassium 4.6 Chloride 102 Carbon Dioxide 30 Anion Gap 8.6 BUN 26 H Creatinine 0.80 Estimated Creat Clear 104 Estimated GFR 74 Est GFR ( Amer) 90 D Glucose 127 H Lactate 1.6 Calcium 8.3 L Total Bilirubin 0.3 AST 23 ALT 15 Alkaline Phosphatase 106 C-Reactive Protein 24.0 H Total Protein 5.3 L Albumin 3.0 L D Globulin 2.3 Albumin/Globulin Ratio 1.3 DS: Diagnosis Discharge Diagnosis (1) Acute hypercapnic respiratory failure: Status: Acute Code(s): J96.02 - Acute respiratory failure with hypercapnia (2) COPD exacerbation: Status: Acute Code(s): J44.1 - Chronic obstructive pulmonary disease with (acute) exacerbation (3) Hyperlipidemia: Status: Acute Code(s): E78.5 - Hyperlipidemia, unspecified Qualifiers: Hyperlipidemia type: mixed hyperlipidemia Qualified Code(s): E78.2 - Mixed hyperlipidemia (4) Tobacco use: Status: Acute Code(s): Z72.0 - Tobacco use (5) CAD (coronary atherosclerotic disease): Status: Acute Code(s): I25.10 - Atherosclerotic heart disease of [place] coronary artery without angina pectoris Qualifiers: Associated angina: with other forms of angina Coronary Disease- Associated Artery/Lesion type: [place] artery [place] vs. transplanted heart: [place] heart Qualified Code(s): I25.118 - Atherosclerotic heart disease of [place] coronary artery with other forms of angina pectoris Meds Home Medications and Allergies Home Medications ?Medication ?Instructions ?Recorded ?Confirmed ?Type clopidogrel 75 mg tablet 75 mg PO DAILY #90 tabs 01/1312/26/24 Rx triamcinolone acetonide 0.5 % 1 applic topical BID 02/0512/26/24 History topical cream aspirin 81 mg chewable tablet 81 mg PO DAILY #90 ea 05 /23/25 09/13/25 Rx metoprolol succinate 25 mg 25 mg PO DAILY 90 days #90 tabs 09/04/24 12/26/24 Rx tablet,extended release 24 hr (Toprol XL) valsartan 160 mg tablet (Diovan) 160 mg PO DAILY #90 t abs 09/04/24 12/26/24 Rx atorvastatin 40 mg tablet 40 mg PO DAILY #90 tabs 11/1412/26/24 Rx ranolazine 500 mg tablet,extended 500 mg PO BID #60 ta bs 12/07/24 12/26/24 Rx release,12 hr albuterol sulfate 90 mcg/actuation 2 puff inhalation B IDRT 12/26/24 12/26/24 History aerosol inhaler (Ventolin HFA) clobetasol 0.05 % topical cream 1 applic topical BID 0 12/26/24 12/26/24 History dupilumab 300 mg/2 mL subcutaneous 300 mg SQ .[id number] 12/26/24 12/26/24 History pen injector ([employer]) hydroxyzine HCl 10 mg tablet 10 mg PO Q6HP PRN Anxiety 12/26/24 12/26/24 History ipratropium 0.5 mg-albuterol 3 mg 3 ml inhalation QIDR T Shortness Of 12/26/24 12/26/24 History (2.5 mg base)/3 mL nebulization Breath soln lactulose 10 gram/15 mL oral 30 ml PO DAILY 12/26/24 0 12/26/24 History solution nitroglycerin 0.4 mg sublingual 0.4 mg sublingual Q5MI BEHAVIORAL INTERVENTION SPECIALIST PRN Chest 12/26/24 12/26/24 History tablet Pain pantoprazole 40 mg tablet,delayed 40 mg PO DAILY 12/2612/26/24 History release pimecrolimus 1 % topical cream 1 applic topical BID 12/26/24 History polyethylene glycol 3350 17 17 g PO DAILY 12/26/24 History gram/dose oral powder tapinarof 1 % topical cream (Vtama) 1 applic topical D AILY 12/26/24 12/26/24 History azithromycin 250 mg tablet 250 mg PO DAILY 3 days #3 t abs 12/27/24 Rx fluticasone fur. 100 mcg-umeclid 1 inh inhalation GERSON Y #0 ea 12/27/24 Rx 62.5 mcg-vilant 25 mcg inhalat.powder (Trelegy Ellipta) prednisone 10 mg tablet 10 mg PO DIRECTED #30 tab s 12/27/24 Rx New Prescriptions to Start Prescriptions: Juan Gonzales prednisone Juan Grossman Allergies Allergy/AdvReac Type Severity Reaction Status Date / Time Anesthetics - Amide Type - Allergy Unknown Unknown Verified 12/26/24 08:28 Select A allergy reaction Anesthetics - Jodi Type- Allergy Unknown Unknown Verified 12/26/24 08:28 Parabens allergy reaction codeine Allergy Unknown Rash Verified 12/26/24 08:28 procaine Allergy Unknown Unknown Verified 12/26/24 08:28 allergy reaction Quinolones Allergy Unknown Unknown Verified 12/26/24 08:28 allergy reaction escitalopram (From Lexapro) AdvReac Mild Vomiting Verified 12/26/24 08:28 sertraline (From Zoloft) AdvReac Mild Vomiting Verified 12/26/24 08:28 levofloxacin AdvReac Unknown Vomiting Verified 12/26/24 08:28 Discharge Plan Disposition Patient Disposition: Home, Self-Care Condition: Fair Discharge Order Discharge Orders: Discharge Order (Routine); Ordered 12/27/24 Ordered By: Juan Grossman Follow up Plan Follow up with: Garfield Brito MD [Physician, Pulmonology] - Enter time for follow up Prescriptions/Medication Reconciliation: New Trelegy Ellipta 100-62.5-25 mcg Blister With Device 1 inh inhalation DAILY Qty: 0 0RF prednisone 10 mg tablet 10 mg PO DIRECTED Qty: 30 0RF Rx Instructions: Take 40 mg for 3 days, 30 mg for 3 days, 20 mg for 3 days, 10 mg for 3 days. azithromycin 250 mg tablet 250 mg PO DAILY 3 Days Qty: 3 0RF Rx Instructions: start on day 2 of therapy Continued triamcinolone acetonide 0.5 % cream 1 applic topical BID clopidogrel 75 mg tablet 75 mg PO DAILY Qty: 90 3RF aspirin 81 mg tablet,chewable 81 mg PO DAILY Qty: 90 3RF metoprolol succinate [Toprol XL] 25 mg tablet extended release 24 hr 25 mg PO DAILY 90 Days Qty: 90 3RF valsartan [Diovan] 160 mg tablet 160 mg PO DAILY Qty: 90 3RF atorvastatin 40 mg tablet 40 mg PO DAILY Qty: 90 1RF ranolazine 500 mg tablet extended release 12 hr 500 mg PO BID Qty: 60 2RF pimecrolimus 1 % Cream 1 applic TOPICAL BID clobetasol 0.05 % Cream 1 applic TOPICAL BID hydroxyzine HCl 10 mg Tablet 10 mg PO Q6HP PRN (Reason: Anxiety) lactulose 10 gram/15 mL Solution 30 ml PO DAILY Vtama 1 % Cream 1 applic TOPICAL DAILY pantoprazole 40 mg tablet,delayed release (DR/EC) 40 mg PO DAILY Dupixent Pen 300 mg/2 mL pen injector 300 mg SQ .[id number] ipratropium-albuterol 0.5 mg-3 mg(2.5 mg base)/3 mL solution for nebulization 3 ml inhalation QIDRT nitroglycerin 0.4 mg tablet, sublingual 0.4 mg sublingual Q5MINP PRN (Reason: Chest Pain) polyethylene glycol 3350 17 gram/dose powder 17 g PO DAILY albuterol sulfate [Ventolin HFA] 90 mcg/actuation HFA aerosol inhaler 2 puff inhalation BIDRT Discontinued budesonide-formoterol [Symbicort] 160-4.5 mcg/actuation Hfa Aerosol Inhaler 2 puff INHALATION BIDRT Problem Reconciliation Problems Reviewed?: Yes Patient Discharge Instructions Additional Instructions: Given your solitary kidney, I would recommend you discuss methotrexate or cyclo sporine or other agents with your long chain beamer. Patient Instructions: DI for Chronic Obstructive Pulmonary Disease, DI for Respiratory Failure, Stop Light COPD Print Language: Moroccan Providers Primary Care Provider: Provider,Referral Admit Provider: Juan Grossman Attending Provider: Juan Grossman
[2024-12-27] MEDS: FLUTICASONE/UMECLIDIN/VILANTER 100/62.5/25MCG INHALER 1 PUFF IH (11:49)
[2024-12-27 11:50] VITALS: PULSE 71; O2SAT 96
--- NOTE | 2024-12-28 11:09 | SW/DCPLANNER ---
Spoke with patient on the phone. Patient stated that she is doing good. Patient stated that she is aware of her upcoming appointment. Patient stated that she is going today to orange picker her new medicine. Patient stated that she has no concerns or questions at this time. Tierney Pleitez
== END 2024-12-27 12:56 | disposition home or self-care (01) | DRG 917 ==
LOC: ER 21:58 → ICU 12-26 03:21 → 2ND 12-26 14:24
PROVIDERS: Nurse Practitioner Acute Care; Admitting Provider Student in an Organized Health Care Education/Training Program; Emergency Provider Student in an Organized Health Care Education/Training Program; Visit Provider Student in an Organized Health Care Education/Training Program
DX: T42.4X1A Poisoning by benzodiazepines, accidental (unintentional), initial encounter (principal); J96.02 Acute respiratory failure with hypercapnia; J44.1 Chronic obstructive pulmonary disease with (acute) exacerbation; I10 Essential (primary) hypertension; E66.9 Obesity, unspecified; I25.118 Atherosclerotic heart disease of native coronary artery with other forms of angina pectoris; I44.0 Atrioventricular block, first degree; E78.2 Mixed hyperlipidemia; L40.9 Psoriasis, unspecified; F17.210 Nicotine dependence, cigarettes, uncomplicated; Z95.5 Presence of coronary angioplasty implant and graft; Z79.82 Long term (current) use of aspirin; Z79.02 Long term (current) use of antithrombotics/antiplatelets; Z79.51 Long term (current) use of inhaled steroids; Z79.52 Long term (current) use of systemic steroids; Z79.899 Other long term (current) drug therapy; Z88.4 Allergy status to anesthetic agent; Z88.1 Allergy status to other antibiotic agents; Z88.5 Allergy status to narcotic agent; Z88.8 Allergy status to other drugs, medicaments and biological substances; Z68.28 Body mass index [BMI] 28.0-28.9, adult; Z71.6 Tobacco abuse counseling
CPT/HCPCS: 0223U; 36415; 71045; 80048; 80053; 80307; 80320; 82140; 82803; 83605; 83690; 83880; 84484; 85007; 85025; 86140; 87636; 93005; 94640; 94761; 97162; 99285; J0456; J2919; J7050

== ENCOUNTER 2025-03-04 11:01 | Emergency (ER) | payer MEDICAID, SELFPAY ==
[2025-03-04 11:07] VITALS: BP 200/91; PULSE 97; RESP 20; TEMP 36.9; O2SAT 95; BMI 25.8
--- NOTE | 2025-03-04 11:14 | ED_ITS ---
<Statement entered by Charlie Rodriguez MD - 03/05/25 11:58> I was consulted by the REBECCA, and we discussed the complexity of the problems being addressed. I approve the treatment and management plan for this patient's care in the emergency department, thus performing a substantive portion of the medical decision making. Charlie Rodriguez MD Discharge Plan Disposition Patient Disposition: Xfer Other Condition: Fair Prescriptions Prescriptions: No Action triamcinolone acetonide 0.5 % cream 1 applic topical BID hydrochlorothiazide 25 mg tablet 25 mg PO DAILY albuterol sulfate [Ventolin HFA] 90 mcg/actuation HFA aerosol inhaler 2 puff inhalation Q6H PRN (Reason: shortness of breath or wheezing) Qty: 8.5 3RF Trelegy Ellipta 100-62.5-25 mcg blister with device 1 inh inhalation DAILY Qty: 60 3RF aspirin 81 mg tablet,chewable 81 mg PO DAILY Qty: 90 3RF metoprolol succinate [Toprol XL] 25 mg tablet extended release 24 hr 25 mg PO DAILY 90 Days Qty: 90 3RF valsartan [Diovan] 160 mg tablet 160 mg PO DAILY Qty: 90 3RF atorvastatin 40 mg tablet 40 mg PO DAILY Qty: 90 1RF ranolazine 500 mg tablet extended release 12 hr 500 mg PO BID Qty: 60 2RF clopidogrel 75 mg tablet 75 mg PO DAILY Qty: 90 0RF pimecrolimus 1 % Cream 1 applic TOPICAL BID clobetasol 0.05 % Cream 1 applic TOPICAL BID hydroxyzine HCl 10 mg Tablet 10 mg PO Q6HP PRN (Reason: Anxiety) lactulose 10 gram/15 mL Solution 30 ml PO DAILY Vtama 1 % Cream 1 applic TOPICAL DAILY pantoprazole 40 mg tablet,delayed release (DR/EC) 40 mg PO DAILY Dupixent Pen 300 mg/2 mL pen injector 300 mg SQ .[id number] ipratropium-albuterol 0.5 mg-3 mg(2.5 mg base)/3 mL solution for nebulization 3 ml inhalation QIDRT nitroglycerin 0.4 mg tablet, sublingual 0.4 mg sublingual Q5MINP PRN (Reason: Chest Pain) polyethylene glycol 3350 17 gram/dose powder 17 g PO DAILY albuterol sulfate [Ventolin HFA] 90 mcg/actuation HFA aerosol inhaler 2 puff inhalation BIDRT prednisone 10 mg tablet 10 mg PO DIRECTED Qty: 30 0RF Rx Instructions: Take 40 mg for 3 days, 30 mg for 3 days, 20 mg for 3 days, 10 mg for 3 days. Referrals Follow up/Referrals: Ольга Starks PA [Primary Care Provider, Medical] - See instructions Clinical Impressions Clinical Impression: Passive suicidal ideations, Hallucinations, visual, Auditory hallucinations Stand Alone Forms Stand Alone Forms: Transfer Record - ED Print Language Print Language: Khmer Discharge ED Provider: Charlie Rodriguez General Adult HPI <PATO Costa - Last Filed: 03/04/25 13:24> General Chief complaint: Anxiety Stated complaint: anxiety Time Seen by Provider: 03/04/25 11:02 Mode of Arrival: EMS Source of Information: Patient and EMS Description of Symptoms (Recalled from ER Triage Doc. by RN): pt reports visual and command hallucinations. telling her to hurt herself and others. Denies hx of suicide attempt but reports wishing she were or would not wake up. no specific plan @ this time. Pt is visibly upset. shaking. denies etoh abuse but reports occasional drug use. History of Present Illness HPI narrative: 54-year-old female presents emergency department via EMS for anxiety and shaking , patient the bedside is visibly quite anxious, shaking and quite tearful appearing, patient tells me that she has been quite anxious and shaking and has not gotten much sleep over the last several days she states her symptoms mainly started on Saturday, she denies any acute life stressors, but states she has had multiple things been going on that of a building up to it dating although back to 2006 , patient endorses passive suicidal ideation, no homicidal ideation, with no plan, this been going on for quite some time increased since Saturday, patient also endorses what sound like visual and auditory hallucinations that it started on Saturday, which is new for her, she states that she was laying in bed and she saw her brother , who she is quite sure was not in the room, when asking what sorts of other hallucinations she has been having, patient states that her brother was tormenting me , patient denies any fever or chills, does have a cough which is chronic for her, admits to chest tightness at times that have been ongoing for quite some time, no overt chest pain, some shortness of breath at times, which she states is chronic for her, patient denies any abdominal pain nausea vomiting, does have constipation for which she will take medicine for it sometimes, denies any hematuria melena hematochezia, no urinary symptomatology. Patient endorses current everyday tobacco use, denies any alcohol use, does admit to occasional drug use, patient states that occasionally I will get a anxiety pill or something off the street , patient's other past medical history consistent with COPD, CAD, history of nephrectomy, unknown side, degenerative disc disease, psoriasis, hypertension, GERD. Patient does however endorse that she has not been taking her medication as prescribed, with the exception of her psoriasis medication. Initial triage vitals notable for hypertensive state at around 200 systolic otherwise unremarkable. Please note that above description of symptoms, in this electronic medical record under categorization of recalled from ER triage doctor by RN are reflective of an initial nursing assessment, however, is not reflective of my full history and physical exam that was personally taken and clarified. Consequentially, this preceding description of symptoms, which may include the patient's categorized chief complaint in the EMR, do not reflect my personal clinical impression, and the ultimate description of history of present illness and patient stated complaints should be deferred to this section of the note. Unless stated otherwise or congruent with this section of the note, additional signs, symptoms, or incongruence should be interpreted as inaccurate with my clinical impression. Onset (ago): day(s) Related Data Home Medications ?Medication ?Instructions ?Recorded ?Confirmed triamcinolone acetonide 0.5 % 1 applic topical BID 02/0501/25/25 topical cream albuterol sulfate 90 mcg/actuation 2 puff inhalation B IDRT 12/26/24 01/25/25 aerosol inhaler (Ventolin HFA) clobetasol 0.05 % topical cream 1 applic topical BID 0 12/26/24 01/25/25 dupilumab 300 mg/2 mL subcutaneous 300 mg [id number] 12/26/24 01/25/25 pen injector (Dupixent) hydroxyzine HCl 10 mg tablet 10 mg PO Q6HP PRN Anxiety 12/26/24 01/25/25 ipratropium 0.5 mg-albuterol 3 mg 3 ml inhalation QIDR T Shortness Of 12/26/24 01/25/25 (2.5 mg base)/3 mL nebulization Breath soln lactulose 10 gram/15 mL oral 30 ml PO DAILY 12/26/24 1 solution nitroglycerin 0.4 mg sublingual 0.4 mg sublingual Q5MI [employer]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[employer]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 Chest 12/26/24 01/25/25 tablet Pain pantoprazole 40 mg tablet,delayed 40 mg PO DAILY 12/2601/25/25 release pimecrolimus 1 % topical cream 1 applic topical BID 01/25/25 polyethylene glycol 3350 17 17 g PO DAILY 12/26/24 gram/dose oral powder tapinarof 1 % topical cream (Vtama) 1 applic topical D AILY 12/26/24 01/25/25 hydrochlorothiazide 25 mg tablet 25 mg PO DAILY 01/25/25 Previous Rx's ?Medication ?Instructions ?Recorded aspirin 81 mg chewable tablet 81 mg PO DAILY #90 ea metoprolol succinate 25 mg 25 mg PO DAILY 90 days #90 tabs 09/04/24 tablet,extended release 24 hr (Toprol XL) valsartan 160 mg tablet (Diovan) 160 mg PO DAILY #90 t abs 09/04/24 atorvastatin 40 mg tablet 40 mg PO DAILY #90 tabs 11/14 09/06 ranolazine 500 mg tablet,extended 500 mg PO BID #60 ta bs 12/07/24 release,12 hr prednisone 10 mg tablet 10 mg PO DIRECTED #30 tab s 12/27/24 albuterol sulfate 90 mcg/actuation 2 puff inhalation Q 6H PRN 01/25/25 aerosol inhaler (Ventolin HFA) shortness of breath or wheezing #8.5 grams fluticasone fur. 100 mcg-umeclid 1 inh inhalation GERSON Y #60 ea 01/25/25 62.5 mcg-vilant 25 mcg inhalat.powder (Trelegy Ellipta) clopidogrel 75 mg tablet 75 mg PO DAILY #90 tabs 02/13 11/06 Allergies Allergy/AdvReac Type Severity Reaction Status Date / Time Anesthetics - Amide Type - Allergy Unknown Unknown Verified 01/25/25 14:12 Select A allergy reaction Anesthetics - Jodi Type- Allergy Unknown Unknown Verified 01/25/25 14:12 Parabens allergy reaction codeine Allergy Unknown Rash Verified 01/25/25 14:12 procaine Allergy Unknown Unknown Verified 01/25/25 14:12 allergy reaction Quinolones Allergy Unknown Unknown Verified 01/25/25 14:12 allergy reaction escitalopram (From Lexapro) AdvReac Mild Vomiting Verified 01/25/25 14:12 sertraline (From Zoloft) AdvReac Mild Vomiting Verified 01/25/25 14:12 levofloxacin AdvReac Unknown Vomiting Verified 01/25/25 14:12 [facility] <PATO Costa - Last Filed: 03/04/25 13:24> [facility] Disclaimer: The information contained in this section may have been updated after the patient was seen, as this information can be updated by other users. Medical History (Updated 03/04/25 @ 12:47 by PATO Costa) Dyspnea on exertion Encounter for screening for malignant neoplasm of lung Smoking greater than 30 pack years Hyperlipidemia Tobacco use Dyspnea 1st degree AV block CAD (coronary atherosclerotic disease) Non-ST elevation RI (NSTEMI) Acute carpal tunnel syndrome Angina pectoris Depression COPD (chronic obstructive pulmonary disease) Cancer Anxiety Psoriasis Surgical History History of cardiac cath History of kidney removal Hx of hysterectomy, total History of kidney surgery Family History Other Cancer Hypertension Social History Smoking Status: Current every day smoker tobacco type: cigarettes packs per day: 1 alcohol intake: never substance use type: denies use current occupational status: unemployed Travel in the last 8 weeks?: None Have you lived/traveled outside [place] in past 30 days?: No Contact w/someone who lives/traveled outside US past 30 days?: No Exposure to someone with infectious disease in past 14 days?: No Do you have a fever (greater than 100.4 F or 38 C)?: No Have you tested positive for COVID-19?: No Exposed to someone with COVID-19 in past 14 days?: No Do you have a sore throat?: No Do you have a cough?: No Do you have any weakness?: No Do you have any diarrhea?: No Are you experiencing any unusual bleeding?: No Do you have any muscle aches/pain?: No Do you have any abdominal pain?: No Are you experiencing loss of taste or smell?: No Other Medical History Have you received the Flu Vaccine for this season: No Have you received the Pneumonia Vaccine: No <PATO Costa - Last Filed: 03/04/25 13:24> ROS Obtained: Yes All systems reviewed & no additional complaints except as documented Physical Exam <PATO Costa - Last Filed: 03/04/25 13:24> General General appearance: alert, in no apparent distress and anxious Comment: Anxious and quite tearful appearing at the bedside Head Head exam: atraumatic and normocephalic Eye Eye exam: Present PERRL and EOMI ENT ENT exam: Present mucous membranes moist Neck Neck exam: Present normal inspection Chest Chest inspection: Present normal inspection and symmetric chest wall rise Respiratory Respiratory exam: Present normal lung sounds bilaterally; Absent respiratory distress Cardiovascular Cardiovascular exam: Present regular rate and normal rhythm Abdominal Exam Abdominal exam: Present soft; Absent tenderness, guarding, rebound or rigidity Extremities Exam Extremities exam: Present normal inspection Neurological Exam Neurological exam: Present alert and oriented X3 Psychiatric Psychiatric exam: Present anxious and suicidal ideation; Absent normal affect Expanded Psychiatric Exam Expanded psych exam: Present restlessness, auditory hallucinations and visual hallucinations Skin Skin exam: Present warm and dry Medical Decision Making <PATO Costa - Last Filed: 03/04/25 13:24> Medical Records Medical records reviewed: Yes I reviewed the patient's medical records. Screening: Per USPSTF and CDC recommendations, given the prevalence of disease in our region, it is our hospital?s policy to screen for HIV and viral Hepatitis for all patients aged 18 and over and those with ongoing risk factors. Rajiv Inquiry Pt receiving controlled substance: No Rajiv was queried for this patient: No Vital Signs: 03/04/25 11:07 03/04/25 12:50 03/04/25 12:53 Temperature 98.4 F Temperature Source Oral Pulse Rate 69 70 Pulse Rate [Right] 97 H Respiratory Rate 20 Blood Pressure 204/105 H 180/95 H Blood Pressure [Right Arm] 200/91 H Blood Pressure Mean 141 Blood Pressure Mean [Right Arm] 127 02 Sat by Pulse Oximetry 95 98 99 Oxygen Delivery Method Room Air Room Air Room Air 03/04/25 13:19 Temperature 98.7 F Temperature Source Pulse Rate 94 H Pulse Rate [Right] Respiratory Rate 20 Blood Pressure 180/95 H Blood Pressure [Right Arm] Blood Pressure Mean Blood Pressure Mean [Right Arm] 02 Sat by Pulse Oximetry Oxygen Delivery Method Lab Data Lab results reviewed: Yes I reviewed the patient's lab results. Lab Results 03/04/25 11:20: WBC 8.4, RBC 4.84, Hgb 14.0, Hct 42.0, MCV 86.8, MCH 28.9, MCHC 33.3, RDW 14.3, Plt Count 297, MPV 10.6 H, Neut % (Auto) 78.3, Lymph % (Auto) 14.4, [place] % (Auto) 5.7, Eos % (Auto) 0.4, Baso % (Auto) 1.0, Neut # (Auto) 6.6, Lymph # (Auto) 1.2, [place] # (Auto) 0.5, Eos # (Auto) 0.0, Baso # (Auto) 0.1, Sodium 143, Potassium 3.8, Chloride 104, Carbon Dioxide 25, Anion Gap 17.8 H, BUN 11, Creatinine 0.90, Estimated Creat Clear 82, Estimated GFR 65, Est GFR ( Amer) 78, Glucose 119 H, Calcium 9.3, Total Bilirubin 0.5, AST 32, ALT 21, Alkaline Phosphatase 111, Total Protein 7.3 D, Albumin 4.4, Globulin 2.9, Albumin/Globulin Ratio 1.5, Salicylates 2.4, Acetaminophen 16, Plasma/Serum Alcohol < 10, HCV Ab WM w/Rflx PCR Qn Negative, HIV Ag/Ab Combo Qual Negative 03/04/25 11:33: Urine Color Yellow, Urine Appearance Clear, Urine pH 6.0, Ur Specific [place] 1.020, Urine Protein 3+ A, Urine Glucose (UA) Negative, Urine Ketones Negative, Urine Blood 1+ A, Urine Nitrate Negative, Urine Bilirubin Negative, Urine Urobilinogen 0.2, Ur Leukocyte Esterase Negative, Urine RBC 3-5, Urine WBC None, Ur Squamous Epith Cells 10-20, Urine Bacteria Trace, Urine Opiates Screen Negative, Urine Methadone Screen Negative, Ur Barbituates Screen Negative, Ur Phencyclidine Scrn Negative, Ur Amphetamines Screen Negative, U Benzodiazepines Scrn Negative, Urine Cocaine Screen Negative, U Marijuana (THC) Screen Negative 03/04/25 11:20 03/04/25 11:20 Orders (Tests/Meds): ORDERS Category Date Time Status Acetaminophen Stat Lab 03/04/25 11:20 Completed Complete Blood Count Auto Diff Stat Lab 03/04/25 11:20 Completed Comprehensive Metabolic Panel Stat Lab 03/04/25 11:20 Completed Drug Screen,Urine Stat Lab 03/04/25 11:33 Completed Ethanol [Ethyl Alcohol] Stat Lab 03/04/25 11:20 Completed HIV Combo Stat Lab 03/04/25 11:20 Completed Hepatitis C Ab Qual. W/ RFX Stat Lab 03/04/25 11:20 Completed Rapid PCR Covid and Flu A/B Stat Lab 03/04/25 11:54 Received Salicylate Stat Lab 03/04/25 11:20 Completed Urinalysis and Microscopic Stat Lab 03/04/25 11:33 Completed Medical Decision Narrative: 54-year-old female presents emergency department with anxiety SI, visual and auditory hallucinations, for several days, differential diagnose include but not limited to, acute psychosis, schizophrenia, panic attack, anxiety reaction, acute stress disorder, toxic encephalopathy, among others I discussed this patient's case with the attending physician Will obtain basic laboratory studies, EKG, acetaminophen level, UDS urinalysis, ethyl alcohol level, rapid PCR COVID and flu, salicylate level, will also initiate suicide precautions, after patient is medically cleared will also attempt to reach out to psychiatric facility for evaluation/assessment. CBC is unremarkable CMP is unremarkable Ethyl alcohol level within normal limits acetaminophen and salicylate level within normal limits UA is notable for 1+ hematuria negative nitrites negative leukocyte esterase, 35 RBCs no WBCs 10-12 squamous epithelial cells and trace bacteria, UDS negative. I discussed this patient's case with [facility] transfer provider/empath transfer provider Ruby Enriquez APRN at approximately 12:35 PM, I was able to speak to Truman with empath/psych who graciously accepted the patient. I discussed this with the patient at the bedside patient is in agreement with the current treatment plan/treatment plan currently voluntary for psychiatric evaluation/transfer. EMS arrived at approximately 1:20 PM to transfer patient for psychiatric evaluation via empath patient stable upon transfer. <Charlie Rodriguez MD - Last Filed: 03/04/25 13:12> Vital Signs: 03/04/25 11:07 03/04/25 12:50 03/04/25 12:53 Temperature 98.4 F Temperature Source Oral Pulse Rate 69 70 Pulse Rate [Right] 97 H Respiratory Rate 20 Blood Pressure 204/105 H 180/95 H Blood Pressure [Right Arm] 200/91 H Blood Pressure Mean 141 Blood Pressure Mean [Right Arm] 127 02 Sat by Pulse Oximetry 95 98 99 Oxygen Delivery Method Room Air Room Air Room Air 03/04/25 13:19 Temperature 98.7 F Temperature Source Pulse Rate 94 H Pulse Rate [Right] Respiratory Rate 20 Blood Pressure 180/95 H Blood Pressure [Right Arm] Blood Pressure Mean Blood Pressure Mean [Right Arm] 02 Sat by Pulse Oximetry Oxygen Delivery Method Lab Data Lab Results 03/04/25 11:20: WBC 8.4, RBC 4.84, Hgb 14.0, Hct 42.0, MCV 86.8, MCH 28.9, MCHC 33.3, RDW 14.3, Plt Count 297, MPV 10.6 H, Neut % (Auto) 78.3, Lymph % (Auto) 14.4, [place] % (Auto) 5.7, Eos % (Auto) 0.4, Baso % (Auto) 1.0, Neut # (Auto) 6.6, Lymph # (Auto) 1.2, [place] # (Auto) 0.5, Eos # (Auto) 0.0, Baso # (Auto) 0.1, Sodium 143, Potassium 3.8, Chloride 104, Carbon Dioxide 25, Anion Gap 17.8 H, BUN 11, Creatinine 0.90, Estimated Creat Clear 82, Estimated GFR 65, Est GFR ( Amer) 78, Glucose 119 H, Calcium 9.3, Total Bilirubin 0.5, AST 32, ALT 21, Alkaline Phosphatase 111, Total Protein 7.3 D, Albumin 4.4, Globulin 2.9, Albumin/Globulin Ratio 1.5, Salicylates 2.4, Acetaminophen 16, Plasma/Serum Alcohol < 10, HCV Ab WM w/Rflx PCR Qn Negative, HIV Ag/Ab Combo Qual Negative 03/04/25 11:33: Urine Color Yellow, Urine Appearance Clear, Urine pH 6.0, Ur Specific [place] 1.020, Urine Protein 3+ A, Urine Glucose (UA) Negative, Urine Ketones Negative, Urine Blood 1+ A, Urine Nitrate Negative, Urine Bilirubin Negative, Urine Urobilinogen 0.2, Ur Leukocyte Esterase Negative, Urine RBC 3-5, Urine WBC None, Ur Squamous Epith Cells 10-20, Urine Bacteria Trace, Urine Opiates Screen Negative, Urine Methadone Screen Negative, Ur Barbituates Screen Negative, Ur Phencyclidine Scrn Negative, Ur Amphetamines Screen Negative, U Benzodiazepines Scrn Negative, Urine Cocaine Screen Negative, U Marijuana (THC) Screen Negative Orders (Tests/Meds): ORDERS Category Date Time Status Acetaminophen Stat Lab 03/04/25 11:20 Completed Complete Blood Count Auto Diff Stat Lab 03/04/25 11:20 Completed Comprehensive Metabolic Panel Stat Lab 03/04/25 11:20 Completed Drug Screen,Urine Stat Lab 03/04/25 11:33 Completed Ethanol [Ethyl Alcohol] Stat Lab 03/04/25 11:20 Completed HIV Combo Stat Lab 03/04/25 11:20 Completed Hepatitis C Ab Qual. W/ RFX Stat Lab 03/04/25 11:20 Completed Rapid PCR Covid and Flu A/B Stat Lab 03/04/25 11:54 Received Salicylate Stat Lab 03/04/25 11:20 Completed Urinalysis and Microscopic Stat Lab 03/04/25 11:33 Completed ECG Data Tracing #1: I reviewed this ECG and interpreted as documented below: Normal sinus rhythm. No ST elevation or depression. QTc normal at 427 Critical Care <PATO Costa - Last Filed: 03/04/25 13:24> Critical Care Time Critical Care Time: No
--- NOTE | 2025-03-04 11:14 | PC.NURSE ---
MD notified of pt vague SI and HI, as well as command hallucinations
--- NOTE | 2025-03-04 11:26 | ECG_ITS ---
APPROVED REPORT Exam: Resting ECG HR:68 bpm ECG Measurements Heart Rate 68 AXES GA 189 P 62 QRSd 96 QRS 42 QT 409 T 58 QTc 427 Conclusion SINUS RHYTHM INCOMPLETE RIGHT BUNDLE BRANCH BLOCK [90+ ms QRS DURATION, TERMINAL R IN V1/V2, 40+ ms S IN I/aVL/V4/V5/V6] BORDERLINE ECG UNCONFIRMED REPORT Normal sinus rhythm. No ST elevation or depression. QTc 427 Electronically signed by : CRAIG OLMEDO, 03/04/2025 14:22:58
[2025-03-04 11:27] LABS: Hematocrit 42.0 % (37.0-47.0); Hemoglobin 14.0 g/dL (12.2-16.2); Immature Granulocytes % 0.2 %; Mean Corpuscular HGB Conc 33.3 g/dL (31.8-35.4); Mean Corpuscular Hemoglobin 28.9 pg (27.0-31.2); Mean Corpuscular Volume 86.8 fl (81-99); Nucleated Red Blood Cells % 0 %; Platelet Count 297 K/mm3 (142-424); Red Blood Count 4.84 M/mm3 (4.20-5.40); Red Cell Distribution Width-SD 45.5 fL; White Blood Count 8.4 K/mm3 (4.8-10.8)
--- NOTE | 2025-03-04 11:30 | PC.NURSE ---
pt placed on 1:1 observation.
[2025-03-04 11:38] LABS: Microscopic, Urine URINE MICROSCOPIC (MICROSCOPIC)
[2025-03-04 11:39] LABS: Albumin Level 4.4 g/dl (3.5-5.0); Chloride 104 mmol/L (98-107); Sodium 143 mmol/L (136-145)
[2025-03-04 11:40] LABS: Potassium 3.8 mmoL/L (3.5-5.1)
[2025-03-04 11:42] LABS: Bilirubin,Urine Negative (Negative); Color,Urine YELLOW (Yellow); Glucose,Urine (UA) Negative (Negative); Ketones,Urine Negative (Negative); Leukocyte Esterase,Urine Negative (Negative); PH,Urine 6.0 (5.0-8.5); Protein,Urine 3+ (Negative); Specific Gravity, Urine 1.020 (1.005-1.030); Urobilinogen,Urine 0.2 EU/dl (0.2)
[2025-03-04 11:42] LABS: Alanine Aminotransferase 21 U/L (12-78); Anion Gap 17.8 mEq/L (5-15); Aspartate Amino Transferase 32 U/L (14-36); Blood Urea Nitrogen 11 mg/dl (7-17); Carbon Dioxide 25 mmol/L (22.0-30.0); Creatinine Clearance Estimated 82 mL/min (50-200); Creatinine,Serum 0.90 mg/dl (0.52-1.04); Estimated Glomerular Filt Rate 65 ml/min (>60); GFR (African American) 78 ML/MIN (>60)
[2025-03-04 11:43] LABS: Acetaminophen 16 ug/ml (10-30); Albumin/Globulin Ratio 1.5 (1.1-1.8); Alkaline Phosphatase 111 U/L (38-126); Bilirubin,Total 0.5 mg/dl (0.2-1.3); Calcium 9.3 mg/dl (8.4-10.2); Globulin 2.9 g/dL (1.3-3.2); Glucose 119 mg/dl (74-100); Salicylate 2.4 mg/dL (2.0-20.0); Total Protein,Serum 7.3 g/dl (6.3-8.2)
[2025-03-04 11:55] LABS: Amphetamine/Metha Screen,Urine Negative ng/ml (<1000)
[2025-03-04 11:56] LABS: Bacteria,Urine Trace /lpf; Barbiturates Screen,Urine Negative ng/ml (<200); Benzodiazepines Screen,Urine Negative ng/ml (<200)
[2025-03-04 11:57] LABS: Coronavirus 19, PCR Not Detected (NotDetected); Influenza A, PCR Not Detected (NotDetected); Influenza B, PCR Not Detected (NotDetected)
[2025-03-04 11:58] LABS: Methadone Screen,Urine Negative ng/ml (<300)
[2025-03-04 11:59] LABS: Opiate Screen,Urine Negative ng/ml (<300)
[2025-03-04 12:00] LABS: Phencyclidine Screen,Urine Negative ng/ml (<25)
--- NOTE | 2025-03-04 12:12 | PC.NURSE ---
pts phone placed in her belongings bag @ bedside
[2025-03-04 12:50] VITALS: BP 204/105; PULSE 69; O2SAT 98
[2025-03-04 12:53] VITALS: BP 180/95; PULSE 70; O2SAT 99
--- NOTE | 2025-03-04 12:54 | PC.NURSE ---
report called to Breana rae
[2025-03-04 13:01] LABS: Hepatitis C Ab Qual. W/ RFX NEGATIVE (Negative)
[2025-03-04 13:19] VITALS: BP 180/95; PULSE 94; RESP 20; TEMP 37.1; O2SAT 95
== END 2025-03-04 13:21 | disposition other institution (70) ==
PROVIDERS: Physician Assistant; Emergency Provider Student in an Organized Health Care Education/Training Program; PCP Physician Assistant
DX: R45.851 Suicidal ideations (principal); R44.0 Auditory hallucinations; R44.1 Visual hallucinations; I10 Essential (primary) hypertension; F17.210 Nicotine dependence, cigarettes, uncomplicated; F41.1 Generalized anxiety disorder
CPT/HCPCS: 80053; 80307; 80320; 80329; 81001; 85025; 86803; 87389; 87636; 93005; 99285